=== PATIENT | male | born 1985 | race Two or more races ===

== ENCOUNTER 2021-03-11 10:42 | Inpatient (IN) | payer OTHER ==
[2021-03-11 11:12] VITALS: BMI 33.1
[2021-03-11] MEDS ORDERED: NICOTINE POLACRILEX 2 MG GUM BUC PRN (12:33)
[2021-03-11] MEDS ORDERED: ACETAMINOPHEN 325 MG TABLET (FP) PO PRN ×2 (12:33)
[2021-03-11] MEDS ORDERED: MAG HYDROX/AL HYDROX/SIMETH 30 ML UNIT-DOSE CUP PO PRN (12:33)
[2021-03-11] MEDS ORDERED: MAGNESIUM HYDROX 2400MG/30ML ORAL SUSPENSION 30 ML CUP PO PRN (12:33)
[2021-03-11] MEDS ORDERED: BISMUTH SUBSALICYLATE 262 MG/15 ML BTL PO PRN (12:33)
[2021-03-11] MEDS ORDERED: IBUPROFEN 400 MG TABLET (FP) PO PRN (12:33)
[2021-03-11] MEDS ORDERED: ONDANSETRON *ODT* 4 MG TABLET SL PRN (12:33)
[2021-03-11] MEDS ORDERED: MAGNESIUM CITRATE 300 ML BOTTLE PO PRN (12:33)
[2021-03-11] MEDS ORDERED: MENTHOL/PHENOL 1 EACH UD MM PRN (12:33)
[2021-03-11] MEDS ORDERED: ALBUTEROL SO4 HFA INHALER IH PRN (12:34)
[2021-03-11] MEDS: diazePAM 5 MG TABLET PO SCH ×3 (13:20→22:50)
[2021-03-11] MEDS: METHOCARBAMOL 500 MG TABLET PO PRN (13:21)
[2021-03-11] MEDS: hydrOXYzine PAMOATE 25 MG CAPSULE (FP) PO SCH ×3 (13:21→22:50)
[2021-03-11] MEDS: PRENATAL VITAMINS W/ FOLIC ACID TABLET (FP) PO SCH (13:22)
[2021-03-11 15:29] LABS: HEMATOCRIT 41.6 % (35.4-49); HEMOGLOBIN 13.9 GM/dL (11.7-16.9); MCH 31.8 pg (25.7-33.7); MCHC 33.3 g/dl (32.0-35.9); MEAN CELL VOLUME 95.5 fl (80-96); MEAN PLT VOLUME 8.3 fl (7.5-11.1); PLATELET COUNT 318 K/MM3 (134-434); RBC 4.36 M/mm3 (4.00-5.60); RDW 15.8 % (11.9-15.9)
[2021-03-11 15:33] LABS: BLOOD UREA NITROGEN 15.6 mg/dL (7-18); CALCIUM 9.6 mg/dL (8.5-10.1)
[2021-03-11 15:35] LABS: ALBUMIN 3.9 g/dl (3.4-5.0)
[2021-03-11 15:37] LABS: CREATININE 0.8 mg/dL (0.55-1.3)
[2021-03-11 15:38] LABS: BILIRUBIN,TOTAL 0.3 mg/dL (0.2-1)
[2021-03-11] MEDS: THIAMINE HCL 100 MG TABLET (FP) PO SCH (22:50)
[2021-03-11] MEDS: MELATONIN 5 MG TABLETS PO SCH (22:51)
[2021-03-12] MEDS: diazePAM 5 MG TABLET PO SCH ×4 (05:58→22:16)
[2021-03-12] MEDS: hydrOXYzine PAMOATE 25 MG CAPSULE (FP) PO SCH ×5 (05:59→22:16)
[2021-03-12] MEDS ORDERED: METHADONE HCL 40 MG DISPERSABLE TABLET ONE (08:46)
[2021-03-12] MEDS ORDERED: METHADONE HCL 10 MG TABLET ONE (08:46)
[2021-03-12] MEDS: PRENATAL VITAMINS W/ FOLIC ACID TABLET (FP) PO SCH (09:26)
[2021-03-12] MEDS ORDERED: METHADONE 160 MG, METHADONE 20 MG PO SCH (10:00)
[2021-03-12] MEDS ORDERED: METHADONE HCL 40 MG DISPERSABLE TABLET PO SCH (10:00)
[2021-03-12] MEDS: METHOCARBAMOL 500 MG TABLET PO PRN (19:36)
[2021-03-12] MEDS ORDERED: SUVOREXANT 10 MG TABLET PO PRN (22:00)
[2021-03-12] MEDS: THIAMINE HCL 100 MG TABLET (FP) PO SCH (22:15)
[2021-03-12] MEDS: MELATONIN 5 MG TABLETS PO SCH (22:15)
[2021-03-13] MEDS ORDERED: METHADONE HCL 40 MG DISPERSABLE TABLET ONE (04:15)
[2021-03-13] MEDS ORDERED: METHADONE HCL 10 MG TABLET ONE (04:15)
[2021-03-13] MEDS: hydrOXYzine PAMOATE 25 MG CAPSULE (FP) PO SCH ×5 (06:26→22:49)
[2021-03-13] MEDS: METHADONE 160 MG, METHADONE 20 MG PO SCH (06:26)
[2021-03-13] MEDS: diazePAM 5 MG TABLET PO SCH ×3 (06:26→22:49)
[2021-03-13] MEDS: METHOCARBAMOL 500 MG TABLET PO PRN ×2 (10:25→22:49)
[2021-03-13] MEDS: PRENATAL VITAMINS W/ FOLIC ACID TABLET (FP) PO SCH (10:25)
[2021-03-13] MEDS: diazePAM 5 MG TABLET PO PRN (10:27)
[2021-03-13] MEDS: THIAMINE HCL 100 MG TABLET (FP) PO SCH (22:49)
[2021-03-13] MEDS: MELATONIN 5 MG TABLETS PO SCH (22:52)
[2021-03-14] MEDS ORDERED: METHADONE HCL 40 MG DISPERSABLE TABLET ONE (03:22)
[2021-03-14] MEDS ORDERED: METHADONE HCL 10 MG TABLET ONE (03:22)
[2021-03-14] MEDS: diazePAM 5 MG TABLET PO SCH ×2 (06:18→17:47)
[2021-03-14] MEDS: METHADONE 160 MG, METHADONE 20 MG PO SCH (06:18)
[2021-03-14] MEDS: hydrOXYzine PAMOATE 25 MG CAPSULE (FP) PO SCH ×5 (06:19→22:41)
[2021-03-14] MEDS: METHOCARBAMOL 500 MG TABLET PO PRN ×2 (06:21→17:47)
[2021-03-14 10:08] LABS: SARS-CoV-2 NAA Not Detected (Not Detected)
[2021-03-14] MEDS: PRENATAL VITAMINS W/ FOLIC ACID TABLET (FP) PO SCH (10:23)
[2021-03-14] MEDS: diazePAM 5 MG TABLET PO PRN (10:24)
[2021-03-14] MEDS: MELATONIN 5 MG TABLETS PO SCH (22:41)
[2021-03-14] MEDS: THIAMINE HCL 100 MG TABLET (FP) PO SCH (22:41)
[2021-03-15] MEDS ORDERED: METHADONE HCL 40 MG DISPERSABLE TABLET ONE (03:49)
[2021-03-15] MEDS ORDERED: METHADONE HCL 10 MG TABLET ONE (03:49)
[2021-03-15] MEDS ORDERED: diazePAM 5 MG TABLET PO ONE (06:00)
[2021-03-15] MEDS: hydrOXYzine PAMOATE 25 MG CAPSULE (FP) PO SCH (07:02)
[2021-03-15] MEDS: METHADONE 160 MG, METHADONE 20 MG PO SCH (07:03)
[2021-03-15 07:07] VITALS: BP 123/66; PULSE 89; TEMP 96.6
== END 2021-03-15 09:12 | disposition home or self-care (01) | DRG 773 ==
LOC: YASAS 10:42 → Y6N 12:05
PROVIDERS: ADMIT Allergy & Immunology; ATTEND Allergy & Immunology
PROC: HZ2ZZZZ Detoxification Services for Substance Abuse Treatment (ICD-10-PCS; principal; 2021-03-11)
DX: F10.230 Alcohol dependence with withdrawal, uncomplicated (principal); F11.20 Opioid dependence, uncomplicated; F13.230 Sedative, hypnotic or anxiolytic dependence with withdrawal, uncomplicated; F12.20 Cannabis dependence, uncomplicated; F17.210 Nicotine dependence, cigarettes, uncomplicated; F31.9 Bipolar disorder, unspecified; F41.9 Anxiety disorder, unspecified; J45.20 Mild intermittent asthma, uncomplicated; Z56.0 Unemployment, unspecified; Z59.0 Homelessness
CPT/HCPCS: 36415; 80053; 85027; 86780; C9803; Q0162; U0003; U0005

== ENCOUNTER 2021-04-07 12:06 | Inpatient (IN) | payer OTHER ==
[2021-04-07 13:27] VITALS: BMI 33.3
[2021-04-07] MEDS ORDERED: NICOTINE POLACRILEX 2 MG GUM BUC PRN (13:31)
[2021-04-07] MEDS ORDERED: MAGNESIUM CITRATE 300 ML BOTTLE PO PRN (13:31)
[2021-04-07] MEDS ORDERED: IBUPROFEN 400 MG TABLET (FP) PO PRN (13:31)
[2021-04-07] MEDS ORDERED: MENTHOL/PHENOL 1 EACH UD MM PRN (13:31)
[2021-04-07] MEDS ORDERED: ACETAMINOPHEN 325 MG TABLET (FP) PO PRN ×2 (13:31)
[2021-04-07] MEDS ORDERED: MAG HYDROX/AL HYDROX/SIMETH 30 ML UNIT-DOSE CUP PO PRN (13:31)
[2021-04-07] MEDS ORDERED: BISMUTH SUBSALICYLATE 524 MG/30 ML PO PRN (13:31)
[2021-04-07] MEDS ORDERED: MAGNESIUM HYDROX 2400MG/30ML ORAL SUSPENSION 30 ML CUP PO PRN (13:31)
[2021-04-07] MEDS ORDERED: diazePAM 5 MG TABLET ONE (13:56)
[2021-04-07] MEDS: diazePAM 5 MG TABLET PO SCH ×3 (14:00→23:39)
[2021-04-07] MEDS: PRENATAL VITAMINS W/ FOLIC ACID TABLET (FP) PO SCH (15:21)
[2021-04-07] MEDS: ONDANSETRON *ODT* 4 MG TABLET SL PRN (15:21)
[2021-04-07] MEDS: hydrOXYzine PAMOATE 25 MG CAPSULE (FP) PO SCH ×3 (15:22→23:39)
[2021-04-07] MEDS: METHOCARBAMOL 500 MG TABLET PO PRN (15:22)
[2021-04-07 17:02] LABS: HEMATOCRIT 36.2 % (35.4-49); HEMOGLOBIN 12.2 GM/dL (11.7-16.9); MCH 32.2 pg (25.7-33.7); MCHC 33.8 g/dl (32.0-35.9); MEAN CELL VOLUME 95.4 fl (80-96); MEAN PLT VOLUME 9.6 fl (7.5-11.1); PLATELET COUNT 214 K/MM3 (134-434); RDW 15.5 % (11.9-15.9); WHITE BLOOD COUNT 8.3 K/mm3 (4.0-10.0)
[2021-04-07 17:08] LABS: ALBUMIN 3.6 g/dl (3.4-5.0); BLOOD UREA NITROGEN 8.4 mg/dL (7-18); CALCIUM 8.3 mg/dL (8.5-10.1)
[2021-04-07 17:11] LABS: CREATININE 0.6 mg/dL (0.55-1.3)
[2021-04-07 17:12] LABS: BILIRUBIN,TOTAL 0.2 mg/dL (0.2-1); TOT PROT 7.1 g/dl (6.4-8.2)
[2021-04-07] MEDS: MELATONIN 5 MG TABLETS PO SCH (23:39)
[2021-04-07] MEDS: THIAMINE HCL 100 MG TABLET (FP) PO SCH (23:39)
[2021-04-08] MEDS: hydrOXYzine PAMOATE 25 MG CAPSULE (FP) PO SCH ×5 (05:13→22:26)
[2021-04-08] MEDS: diazePAM 5 MG TABLET PO SCH ×4 (05:14→22:26)
[2021-04-08] MEDS: METHOCARBAMOL 500 MG TABLET PO PRN ×2 (05:14→13:26)
[2021-04-08] MEDS ORDERED: ALBUTEROL SO4 HFA INHALER IH PRN (07:52)
[2021-04-08] MEDS ORDERED: METHADONE HCL 10 MG TABLET PO ONE (08:06)
[2021-04-08] MEDS ORDERED: METHADONE 160 MG, METHADONE 20 MG PO ONE (08:17)
[2021-04-08] MEDS ORDERED: METHADONE HCL 10 MG TABLET ONE (09:00)
[2021-04-08] MEDS ORDERED: METHADONE HCL 40 MG DISPERSABLE TABLET ONE (09:01)
[2021-04-08] MEDS: ONDANSETRON *ODT* 4 MG TABLET SL PRN ×2 (09:08→17:29)
[2021-04-08] MEDS: NICOTINE 14 MG/24 HOURS TOPICAL PATCH TD SCH (10:11)
[2021-04-08] MEDS: PRENATAL VITAMINS W/ FOLIC ACID TABLET (FP) PO SCH (10:12)
[2021-04-08 10:45] LABS: HIV INTERPRETATION NEGATIVE (NEGATIVE)
[2021-04-08] MEDS: MELATONIN 5 MG TABLETS PO SCH (22:25)
[2021-04-08] MEDS: THIAMINE HCL 100 MG TABLET (FP) PO SCH (22:25)
[2021-04-09] MEDS ORDERED: METHADONE HCL 40 MG DISPERSABLE TABLET ONE (04:13)
[2021-04-09] MEDS ORDERED: METHADONE HCL 10 MG TABLET ONE (04:13)
[2021-04-09] MEDS: METHADONE 160 MG, METHADONE 20 MG PO SCH (05:31)
[2021-04-09] MEDS: diazePAM 5 MG TABLET PO SCH ×3 (05:31→22:10)
[2021-04-09] MEDS: hydrOXYzine PAMOATE 25 MG CAPSULE (FP) PO SCH ×2 (05:31→10:31)
[2021-04-09] MEDS ORDERED: METHADONE HCL 40 MG DISPERSABLE TABLET PO SCH (06:00)
[2021-04-09] MEDS ORDERED: TRIMETHOBENZAMIDE HCL 300 MG CAPSULE PO PRN (10:03)
[2021-04-09] MEDS: hydrOXYzine PAMOATE 25 MG CAPSULE (FP) PO PRN ×3 (10:25→22:12)
[2021-04-09] MEDS: METHOCARBAMOL 500 MG TABLET PO PRN ×2 (10:25→17:39)
[2021-04-09] MEDS: diazePAM 5 MG TABLET PO PRN ×2 (10:26→17:37)
[2021-04-09] MEDS: PRENATAL VITAMINS W/ FOLIC ACID TABLET (FP) PO SCH (10:27)
[2021-04-09] MEDS: NICOTINE 14 MG/24 HOURS TOPICAL PATCH TD SCH (10:27)
[2021-04-09] MEDS: CYPROHEPTADINE HCL 4 MG TABLET PO SCH ×2 (11:57→17:39)
[2021-04-09] MEDS: THIAMINE HCL 100 MG TABLET (FP) PO SCH (22:10)
[2021-04-09] MEDS: MELATONIN 5 MG TABLETS PO SCH (22:10)
[2021-04-10] MEDS ORDERED: METHADONE HCL 10 MG TABLET ONE (04:39)
[2021-04-10] MEDS ORDERED: METHADONE HCL 40 MG DISPERSABLE TABLET ONE (04:40)
[2021-04-10] MEDS: diazePAM 5 MG TABLET PO SCH ×2 (05:47→17:37)
[2021-04-10] MEDS: METHADONE 160 MG, METHADONE 20 MG PO SCH (05:47)
[2021-04-10] MEDS: METHOCARBAMOL 500 MG TABLET PO PRN (05:49)
[2021-04-10 06:07] LABS: SARS-CoV-2 NAA Not Detected (Not Detected)
[2021-04-10] MEDS: CYPROHEPTADINE HCL 4 MG TABLET PO SCH ×3 (08:05→17:37)
[2021-04-10] MEDS: PRENATAL VITAMINS W/ FOLIC ACID TABLET (FP) PO SCH (10:17)
[2021-04-10] MEDS: NICOTINE 14 MG/24 HOURS TOPICAL PATCH TD SCH (10:18)
[2021-04-10] MEDS: hydrOXYzine PAMOATE 25 MG CAPSULE (FP) PO PRN ×2 (10:19→22:37)
[2021-04-10] MEDS: MELATONIN 5 MG TABLETS PO SCH (22:37)
[2021-04-10] MEDS: THIAMINE HCL 100 MG TABLET (FP) PO SCH (22:37)
[2021-04-11] MEDS ORDERED: METHADONE HCL 40 MG DISPERSABLE TABLET ONE (04:40)
[2021-04-11] MEDS ORDERED: METHADONE HCL 10 MG TABLET ONE (04:40)
[2021-04-11] MEDS: METHADONE 160 MG, METHADONE 20 MG PO SCH (05:52)
[2021-04-11] MEDS: METHOCARBAMOL 500 MG TABLET PO PRN (05:54)
[2021-04-11] MEDS ORDERED: diazePAM 5 MG TABLET PO ONE (06:00)
[2021-04-11] MEDS: CYPROHEPTADINE HCL 4 MG TABLET PO SCH ×2 (06:04→10:48)
[2021-04-11 09:23] VITALS: BP 111/84; PULSE 81; TEMP 97.1
[2021-04-11] MEDS: NICOTINE 14 MG/24 HOURS TOPICAL PATCH TD SCH (10:49)
[2021-04-11] MEDS: PRENATAL VITAMINS W/ FOLIC ACID TABLET (FP) PO SCH (10:49)
[2021-04-11] MEDS: hydrOXYzine PAMOATE 25 MG CAPSULE (FP) PO PRN (10:50)
== END 2021-04-11 12:11 | disposition other institution (70) | DRG 773 ==
LOC: YASAS 12:06 → Y3N 14:07
PROVIDERS: ADMIT Allergy & Immunology; ATTEND Allergy & Immunology
PROC: HZ2ZZZZ Detoxification Services for Substance Abuse Treatment (ICD-10-PCS; principal; 2021-04-07)
DX: F13.230 Sedative, hypnotic or anxiolytic dependence with withdrawal, uncomplicated (principal); F11.20 Opioid dependence, uncomplicated; F10.10 Alcohol abuse, uncomplicated; F12.20 Cannabis dependence, uncomplicated; F17.210 Nicotine dependence, cigarettes, uncomplicated; F31.9 Bipolar disorder, unspecified; F41.9 Anxiety disorder, unspecified; J45.20 Mild intermittent asthma, uncomplicated; E66.9 Obesity, unspecified; Z68.33 Body mass index [BMI] 33.0-33.9, adult
CPT/HCPCS: 36415; 80053; 85027; 86780; 87389; C9803; Q0162; U0003; U0005

== ENCOUNTER 2021-04-11 11:53 | Inpatient (IN) | payer OTHER ==
[2021-04-11] MEDS ORDERED: guaiFENesin 200 MG/10 ML 10 ML UNIT-DOSE CUPS PO PRN (13:38)
[2021-04-11] MEDS ORDERED: IBUPROFEN 400 MG TABLET (FP) PO PRN (13:38)
[2021-04-11] MEDS ORDERED: MAG HYDROX/AL HYDROX/SIMETH 30 ML UNIT-DOSE CUP PO PRN (13:38)
[2021-04-11] MEDS ORDERED: NICOTINE POLACRILEX 2 MG GUM BUC PRN (13:38)
[2021-04-11] MEDS ORDERED: MENTHOL/PHENOL 1 EACH UD MM PRN (13:38)
[2021-04-11] MEDS ORDERED: P-EPHED 60MG/TRIPROLIDI 2.5MG TABLET PO PRN (13:38)
[2021-04-11] MEDS ORDERED: LOPERAMIDE HCL 2 MG CAPSULE PO PRN (13:38)
[2021-04-11] MEDS ORDERED: ALBUTEROL SO4 HFA INHALER IH PRN (13:41)
[2021-04-11] MEDS: CYPROHEPTADINE HCL 4 MG TABLET PO SCH (18:17)
[2021-04-11] MEDS: THIAMINE HCL 100 MG TABLET (FP) PO SCH (21:37)
[2021-04-11] MEDS: QUEtiapine FUMARATE 50 MG TABLET PO SCH (21:37)
[2021-04-11] MEDS: MELATONIN 5 MG TABLETS PO SCH (21:37)
[2021-04-11] MEDS: BENZTROPINE MESYLATE 1 MG TABLET PO SCH (21:37)
[2021-04-12] MEDS ORDERED: METHADONE HCL 40 MG DISPERSABLE TABLET ONE (05:55)
[2021-04-12] MEDS ORDERED: METHADONE HCL 10 MG TABLET ONE (05:55)
[2021-04-12] MEDS ORDERED: METHADONE HCL 10 MG TABLET PO SCH (06:00)
[2021-04-12] MEDS: METHADONE 160 MG, METHADONE 20 MG PO SCH (06:36)
[2021-04-12] MEDS: CYPROHEPTADINE HCL 4 MG TABLET PO SCH ×3 (06:37→17:24)
[2021-04-12] MEDS: ACETAMINOPHEN 325 MG TABLET (FP) PO PRN (06:38)
[2021-04-12] MEDS: NICOTINE 14 MG/24 HOURS TOPICAL PATCH TD SCH (09:54)
[2021-04-12] MEDS: BENZTROPINE MESYLATE 1 MG TABLET PO SCH ×2 (09:54→21:32)
[2021-04-12] MEDS: PRENATAL VITAMINS W/ FOLIC ACID TABLET (FP) PO SCH (09:54)
[2021-04-12] MEDS: hydrOXYzine PAMOATE 25 MG CAPSULE (FP) PO PRN (09:55)
[2021-04-12] MEDS: METHOCARBAMOL 500 MG TABLET PO PRN ×2 (13:24→21:32)
[2021-04-12] MEDS: MELATONIN 5 MG TABLETS PO SCH (21:31)
[2021-04-12] MEDS: THIAMINE HCL 100 MG TABLET (FP) PO SCH (21:31)
[2021-04-12] MEDS: QUEtiapine FUMARATE 50 MG TABLET PO SCH (21:32)
[2021-04-13] MEDS ORDERED: METHADONE HCL 10 MG TABLET ONE (03:09)
[2021-04-13] MEDS ORDERED: METHADONE HCL 40 MG DISPERSABLE TABLET ONE (03:09)
[2021-04-13] MEDS: CYPROHEPTADINE HCL 4 MG TABLET PO SCH ×3 (06:19→17:59)
[2021-04-13] MEDS: METHADONE 160 MG, METHADONE 20 MG PO SCH (06:19)
[2021-04-13] MEDS: PRENATAL VITAMINS W/ FOLIC ACID TABLET (FP) PO SCH (09:47)
[2021-04-13] MEDS: NICOTINE 14 MG/24 HOURS TOPICAL PATCH TD SCH (09:49)
[2021-04-13] MEDS: METHOCARBAMOL 500 MG TABLET PO PRN ×2 (09:49→21:38)
[2021-04-13] MEDS: BENZTROPINE MESYLATE 1 MG TABLET PO SCH ×2 (09:50→21:39)
[2021-04-13] MEDS ORDERED: ESCITALOPRAM OXALATE 10 MG TABLET PO SCH (10:00)
[2021-04-13] MEDS: QUEtiapine FUMARATE 50 MG TABLET PO SCH ×2 (12:26→21:38)
[2021-04-13] MEDS: MELATONIN 5 MG TABLETS PO SCH (21:38)
[2021-04-13] MEDS: THIAMINE HCL 100 MG TABLET (FP) PO SCH (21:38)
[2021-04-14] MEDS ORDERED: METHADONE HCL 10 MG TABLET ONE (03:08)
[2021-04-14] MEDS ORDERED: METHADONE HCL 40 MG DISPERSABLE TABLET ONE (03:08)
[2021-04-14] MEDS: CYPROHEPTADINE HCL 4 MG TABLET PO SCH ×3 (06:31→16:44)
[2021-04-14] MEDS: METHADONE 160 MG, METHADONE 20 MG PO SCH (06:31)
[2021-04-14] MEDS: METHOCARBAMOL 500 MG TABLET PO PRN ×4 (06:32→21:19)
[2021-04-14] MEDS ORDERED: PT OWN MED DRAWER 7, Y5N ONE (08:42)
[2021-04-14] MEDS: BENZTROPINE MESYLATE 1 MG TABLET PO SCH ×2 (10:18→21:18)
[2021-04-14] MEDS: NICOTINE 14 MG/24 HOURS TOPICAL PATCH TD SCH (10:19)
[2021-04-14] MEDS: PRENATAL VITAMINS W/ FOLIC ACID TABLET (FP) PO SCH (10:19)
[2021-04-14] MEDS: FLUoxetine HCL 10 MG TABLET PO SCH (10:20)
[2021-04-14] MEDS: ACETAMINOPHEN 325 MG TABLET (FP) PO PRN (16:44)
[2021-04-14] MEDS: QUEtiapine FUMARATE 50 MG TABLET PO SCH (21:18)
[2021-04-14] MEDS: MELATONIN 5 MG TABLETS PO SCH (21:18)
[2021-04-14] MEDS: THIAMINE HCL 100 MG TABLET (FP) PO SCH (21:18)
[2021-04-15] MEDS ORDERED: METHADONE HCL 40 MG DISPERSABLE TABLET ONE (03:04)
[2021-04-15] MEDS ORDERED: METHADONE HCL 10 MG TABLET ONE (03:04)
[2021-04-15 06:08] LABS: SARS-CoV-2 NAA Not Detected (Not Detected)
[2021-04-15] MEDS: METHADONE 160 MG, METHADONE 20 MG PO SCH (06:34)
[2021-04-15] MEDS: CYPROHEPTADINE HCL 4 MG TABLET PO SCH ×3 (06:34→16:50)
[2021-04-15] MEDS: METHOCARBAMOL 500 MG TABLET PO PRN ×3 (06:58→21:19)
[2021-04-15] MEDS: MAGNESIUM HYDROX 2400MG/30ML ORAL SUSPENSION 30 ML CUP PO PRN (08:54)
[2021-04-15] MEDS: PRENATAL VITAMINS W/ FOLIC ACID TABLET (FP) PO SCH (10:07)
[2021-04-15] MEDS: FLUoxetine HCL 10 MG TABLET PO SCH (10:08)
[2021-04-15] MEDS: BENZTROPINE MESYLATE 1 MG TABLET PO SCH ×2 (10:08→21:19)
[2021-04-15] MEDS: NICOTINE 14 MG/24 HOURS TOPICAL PATCH TD SCH (10:08)
[2021-04-15] MEDS: QUEtiapine FUMARATE 50 MG TABLET PO SCH (21:19)
[2021-04-15] MEDS: THIAMINE HCL 100 MG TABLET (FP) PO SCH (21:19)
[2021-04-15] MEDS: MELATONIN 5 MG TABLETS PO SCH (21:19)
[2021-04-16] MEDS ORDERED: METHADONE HCL 10 MG TABLET ONE (03:06)
[2021-04-16] MEDS ORDERED: METHADONE HCL 40 MG DISPERSABLE TABLET ONE (03:06)
[2021-04-16] MEDS: CYPROHEPTADINE HCL 4 MG TABLET PO SCH ×3 (06:00→16:38)
[2021-04-16] MEDS: METHADONE 160 MG, METHADONE 20 MG PO SCH (06:00)
[2021-04-16] MEDS: METHOCARBAMOL 500 MG TABLET PO PRN ×3 (06:00→21:30)
[2021-04-16] MEDS: FLUoxetine HCL 10 MG TABLET PO SCH (09:06)
[2021-04-16] MEDS: PRENATAL VITAMINS W/ FOLIC ACID TABLET (FP) PO SCH (09:06)
[2021-04-16] MEDS: BENZTROPINE MESYLATE 1 MG TABLET PO SCH ×2 (09:06→21:28)
[2021-04-16] MEDS: NICOTINE 14 MG/24 HOURS TOPICAL PATCH TD SCH (09:07)
[2021-04-16] MEDS: MAGNESIUM CITRATE 300 ML BOTTLE PO PRN (09:08)
[2021-04-16] MEDS: ACETAMINOPHEN 325 MG TABLET (FP) PO PRN (09:08)
[2021-04-16] MEDS: QUEtiapine FUMARATE 50 MG TABLET PO SCH (21:28)
[2021-04-16] MEDS: MELATONIN 5 MG TABLETS PO SCH (21:29)
[2021-04-16] MEDS: THIAMINE HCL 100 MG TABLET (FP) PO SCH (21:30)
[2021-04-17] MEDS ORDERED: METHADONE HCL 40 MG DISPERSABLE TABLET ONE (03:18)
[2021-04-17] MEDS ORDERED: METHADONE HCL 10 MG TABLET ONE (03:18)
[2021-04-17] MEDS: CYPROHEPTADINE HCL 4 MG TABLET PO SCH ×3 (06:31→17:19)
[2021-04-17] MEDS: METHADONE 160 MG, METHADONE 20 MG PO SCH (06:31)
[2021-04-17] MEDS: FLUoxetine HCL 10 MG TABLET PO SCH (10:24)
[2021-04-17] MEDS: NICOTINE 14 MG/24 HOURS TOPICAL PATCH TD SCH (10:24)
[2021-04-17] MEDS: BENZTROPINE MESYLATE 1 MG TABLET PO SCH ×2 (10:24→21:58)
[2021-04-17] MEDS: PRENATAL VITAMINS W/ FOLIC ACID TABLET (FP) PO SCH (10:24)
[2021-04-17] MEDS: METHOCARBAMOL 500 MG TABLET PO PRN ×2 (17:22→21:59)
[2021-04-17] MEDS: QUEtiapine FUMARATE 50 MG TABLET PO SCH (21:57)
[2021-04-17] MEDS: MELATONIN 5 MG TABLETS PO SCH (21:58)
[2021-04-17] MEDS: THIAMINE HCL 100 MG TABLET (FP) PO SCH (21:59)
[2021-04-18] MEDS ORDERED: METHADONE HCL 10 MG TABLET ONE (05:49)
[2021-04-18] MEDS ORDERED: METHADONE HCL 40 MG DISPERSABLE TABLET ONE (05:49)
[2021-04-18] MEDS: METHADONE 160 MG, METHADONE 20 MG PO SCH (06:10)
[2021-04-18] MEDS: CYPROHEPTADINE HCL 4 MG TABLET PO SCH ×3 (06:11→16:34)
[2021-04-18] MEDS: ACETAMINOPHEN 325 MG TABLET (FP) PO PRN (06:11)
[2021-04-18] MEDS: PRENATAL VITAMINS W/ FOLIC ACID TABLET (FP) PO SCH (10:33)
[2021-04-18] MEDS: ARIPiprazole 5 MG TABLET PO SCH (10:33)
[2021-04-18] MEDS: METHOCARBAMOL 500 MG TABLET PO PRN ×2 (10:33→16:34)
[2021-04-18] MEDS: BENZTROPINE MESYLATE 1 MG TABLET PO SCH ×2 (10:33→21:29)
[2021-04-18] MEDS: NICOTINE 14 MG/24 HOURS TOPICAL PATCH TD SCH (10:33)
[2021-04-18] MEDS: THIAMINE HCL 100 MG TABLET (FP) PO SCH (21:29)
[2021-04-18] MEDS: QUEtiapine FUMARATE 50 MG TABLET PO SCH (21:29)
[2021-04-18] MEDS: MELATONIN 5 MG TABLETS PO SCH (21:29)
[2021-04-19] MEDS ORDERED: METHADONE HCL 40 MG DISPERSABLE TABLET ONE (04:09)
[2021-04-19] MEDS ORDERED: METHADONE HCL 10 MG TABLET ONE (04:10)
[2021-04-19] MEDS: CYPROHEPTADINE HCL 4 MG TABLET PO SCH ×3 (06:00→16:20)
[2021-04-19] MEDS: METHADONE 160 MG, METHADONE 20 MG PO SCH (06:00)
[2021-04-19] MEDS: METHOCARBAMOL 500 MG TABLET PO PRN ×3 (06:03→21:25)
[2021-04-19] MEDS: NICOTINE 14 MG/24 HOURS TOPICAL PATCH TD SCH (09:54)
[2021-04-19] MEDS: ARIPiprazole 5 MG TABLET PO SCH (09:54)
[2021-04-19] MEDS: BENZTROPINE MESYLATE 1 MG TABLET PO SCH ×2 (09:54→21:25)
[2021-04-19] MEDS: PRENATAL VITAMINS W/ FOLIC ACID TABLET (FP) PO SCH (09:54)
[2021-04-19] MEDS: hydrOXYzine PAMOATE 25 MG CAPSULE (FP) PO PRN (09:57)
[2021-04-19] MEDS: THIAMINE HCL 100 MG TABLET (FP) PO SCH (21:24)
[2021-04-19] MEDS: QUEtiapine FUMARATE 50 MG TABLET PO SCH (21:25)
[2021-04-19] MEDS: MELATONIN 5 MG TABLETS PO SCH (21:25)
[2021-04-20] MEDS ORDERED: METHADONE HCL 40 MG DISPERSABLE TABLET ONE (03:13)
[2021-04-20] MEDS ORDERED: METHADONE HCL 10 MG TABLET ONE (03:14)
[2021-04-20] MEDS: METHADONE 160 MG, METHADONE 20 MG PO SCH (05:57)
[2021-04-20] MEDS: ACETAMINOPHEN 325 MG TABLET (FP) PO PRN (05:58)
[2021-04-20] MEDS: CYPROHEPTADINE HCL 4 MG TABLET PO SCH ×3 (06:00→16:30)
[2021-04-20] MEDS: BENZTROPINE MESYLATE 1 MG TABLET PO SCH ×2 (09:18→21:20)
[2021-04-20] MEDS: NICOTINE 14 MG/24 HOURS TOPICAL PATCH TD SCH (09:18)
[2021-04-20] MEDS: PRENATAL VITAMINS W/ FOLIC ACID TABLET (FP) PO SCH (09:18)
[2021-04-20] MEDS: ARIPiprazole 5 MG TABLET PO SCH (09:18)
[2021-04-20] MEDS: hydrOXYzine PAMOATE 25 MG CAPSULE (FP) PO PRN ×2 (09:19→17:55)
[2021-04-20] MEDS: THIAMINE HCL 100 MG TABLET (FP) PO SCH (21:20)
[2021-04-20] MEDS: QUEtiapine FUMARATE 50 MG TABLET PO SCH (21:20)
[2021-04-20] MEDS: MELATONIN 5 MG TABLETS PO SCH (21:20)
[2021-04-20] MEDS: METHOCARBAMOL 500 MG TABLET PO PRN (21:20)
[2021-04-21] MEDS ORDERED: METHADONE HCL 40 MG DISPERSABLE TABLET ONE (03:05)
[2021-04-21] MEDS ORDERED: METHADONE HCL 10 MG TABLET ONE (03:05)
[2021-04-21] MEDS: METHADONE 160 MG, METHADONE 20 MG PO SCH (06:22)
[2021-04-21] MEDS: CYPROHEPTADINE HCL 4 MG TABLET PO SCH ×3 (06:23→17:17)
[2021-04-21] MEDS: hydrOXYzine PAMOATE 25 MG CAPSULE (FP) PO PRN ×3 (06:26→21:24)
[2021-04-21] MEDS: METHOCARBAMOL 500 MG TABLET PO PRN ×3 (06:26→14:47)
[2021-04-21] MEDS: ARIPiprazole 5 MG TABLET PO SCH (09:58)
[2021-04-21] MEDS: NICOTINE 14 MG/24 HOURS TOPICAL PATCH TD SCH (09:59)
[2021-04-21] MEDS: BENZTROPINE MESYLATE 1 MG TABLET PO SCH ×2 (09:59→21:22)
[2021-04-21] MEDS: PRENATAL VITAMINS W/ FOLIC ACID TABLET (FP) PO SCH (09:59)
[2021-04-21] MEDS: MELATONIN 5 MG TABLETS PO SCH (21:23)
[2021-04-21] MEDS: QUEtiapine FUMARATE 50 MG TABLET PO SCH (21:23)
[2021-04-21] MEDS: THIAMINE HCL 100 MG TABLET (FP) PO SCH (21:24)
[2021-04-22] MEDS ORDERED: METHADONE HCL 40 MG DISPERSABLE TABLET ONE (03:10)
[2021-04-22] MEDS ORDERED: METHADONE HCL 10 MG TABLET ONE (03:11)
[2021-04-22] MEDS: METHADONE 160 MG, METHADONE 20 MG PO SCH (05:59)
[2021-04-22] MEDS: CYPROHEPTADINE HCL 4 MG TABLET PO SCH ×3 (05:59→16:58)
[2021-04-22] MEDS: ACETAMINOPHEN 325 MG TABLET (FP) PO PRN (06:00)
[2021-04-22] MEDS: PRENATAL VITAMINS W/ FOLIC ACID TABLET (FP) PO SCH (10:19)
[2021-04-22] MEDS: NICOTINE 14 MG/24 HOURS TOPICAL PATCH TD SCH (10:20)
[2021-04-22] MEDS: BENZTROPINE MESYLATE 1 MG TABLET PO SCH ×2 (10:20→21:16)
[2021-04-22] MEDS: ARIPiprazole 5 MG TABLET PO SCH (10:20)
[2021-04-22] MEDS: METHOCARBAMOL 500 MG TABLET PO PRN ×3 (10:21→21:19)
[2021-04-22] MEDS ORDERED: ARIPiprazole 5 MG TABLET PO SCH (14:44)
[2021-04-22] MEDS: QUEtiapine FUMARATE 50 MG TABLET PO SCH (21:16)
[2021-04-22] MEDS: THIAMINE HCL 100 MG TABLET (FP) PO SCH (21:17)
[2021-04-22] MEDS: MELATONIN 5 MG TABLETS PO SCH (21:19)
[2021-04-23] MEDS ORDERED: METHADONE HCL 40 MG DISPERSABLE TABLET ONE (03:52)
[2021-04-23] MEDS ORDERED: METHADONE HCL 10 MG TABLET ONE (03:52)
[2021-04-23] MEDS: CYPROHEPTADINE HCL 4 MG TABLET PO SCH ×3 (06:13→17:10)
[2021-04-23] MEDS: METHADONE 160 MG, METHADONE 20 MG PO SCH (06:13)
[2021-04-23] MEDS: ARIPiprazole 10 MG TABLET PO SCH (09:53)
[2021-04-23] MEDS: PRENATAL VITAMINS W/ FOLIC ACID TABLET (FP) PO SCH (09:54)
[2021-04-23] MEDS: NICOTINE 14 MG/24 HOURS TOPICAL PATCH TD SCH (09:54)
[2021-04-23] MEDS: BENZTROPINE MESYLATE 1 MG TABLET PO SCH ×2 (09:54→21:28)
[2021-04-23] MEDS: METHOCARBAMOL 500 MG TABLET PO PRN ×2 (17:10→21:28)
[2021-04-23] MEDS: MELATONIN 5 MG TABLETS PO SCH (21:27)
[2021-04-23] MEDS: THIAMINE HCL 100 MG TABLET (FP) PO SCH (21:27)
[2021-04-23] MEDS: QUEtiapine FUMARATE 50 MG TABLET PO SCH (21:28)
[2021-04-24] MEDS ORDERED: METHADONE HCL 40 MG DISPERSABLE TABLET ONE (06:15)
[2021-04-24] MEDS ORDERED: METHADONE HCL 10 MG TABLET ONE (06:15)
[2021-04-24] MEDS: CYPROHEPTADINE HCL 4 MG TABLET PO SCH ×3 (06:24→16:28)
[2021-04-24] MEDS: METHADONE 160 MG, METHADONE 20 MG PO SCH (06:24)
[2021-04-24] MEDS: METHOCARBAMOL 500 MG TABLET PO PRN ×3 (06:26→21:31)
[2021-04-24] MEDS: BENZTROPINE MESYLATE 1 MG TABLET PO SCH ×2 (10:08→21:30)
[2021-04-24] MEDS: PRENATAL VITAMINS W/ FOLIC ACID TABLET (FP) PO SCH (10:08)
[2021-04-24] MEDS: NICOTINE 14 MG/24 HOURS TOPICAL PATCH TD SCH (10:08)
[2021-04-24] MEDS: ARIPiprazole 10 MG TABLET PO SCH (10:08)
[2021-04-24] MEDS: hydrOXYzine PAMOATE 25 MG CAPSULE (FP) PO PRN ×3 (10:09→21:29)
[2021-04-24] MEDS: MAGNESIUM HYDROX 2400MG/30ML ORAL SUSPENSION 30 ML CUP PO PRN (11:02)
[2021-04-24] MEDS ORDERED: MASKS NR ONE (15:27)
[2021-04-24] MEDS: QUEtiapine FUMARATE 50 MG TABLET PO SCH (21:29)
[2021-04-24] MEDS: THIAMINE HCL 100 MG TABLET (FP) PO SCH (21:31)
[2021-04-24] MEDS: MELATONIN 5 MG TABLETS PO SCH (21:31)
[2021-04-25] MEDS ORDERED: METHADONE HCL 40 MG DISPERSABLE TABLET ONE (03:10)
[2021-04-25] MEDS ORDERED: METHADONE HCL 10 MG TABLET ONE (03:11)
[2021-04-25] MEDS: METHADONE 160 MG, METHADONE 20 MG PO SCH (06:17)
[2021-04-25] MEDS: CYPROHEPTADINE HCL 4 MG TABLET PO SCH ×3 (06:19→16:43)
[2021-04-25] MEDS: MAGNESIUM CITRATE 300 ML BOTTLE PO PRN (08:36)
[2021-04-25] MEDS: METHOCARBAMOL 500 MG TABLET PO PRN ×2 (09:56→21:19)
[2021-04-25] MEDS: PRENATAL VITAMINS W/ FOLIC ACID TABLET (FP) PO SCH (09:56)
[2021-04-25] MEDS: ARIPiprazole 10 MG TABLET PO SCH (09:56)
[2021-04-25] MEDS: BENZTROPINE MESYLATE 1 MG TABLET PO SCH ×2 (09:56→21:19)
[2021-04-25] MEDS: NICOTINE 14 MG/24 HOURS TOPICAL PATCH TD SCH (09:57)
[2021-04-25] MEDS: MELATONIN 5 MG TABLETS PO SCH (21:20)
[2021-04-25] MEDS: QUEtiapine FUMARATE 50 MG TABLET PO SCH (21:20)
[2021-04-25] MEDS: THIAMINE HCL 100 MG TABLET (FP) PO SCH (21:20)
[2021-04-26] MEDS ORDERED: METHADONE HCL 10 MG TABLET ONE (03:23)
[2021-04-26] MEDS ORDERED: METHADONE HCL 40 MG DISPERSABLE TABLET ONE (03:23)
[2021-04-26] MEDS: CYPROHEPTADINE HCL 4 MG TABLET PO SCH ×3 (06:09→17:18)
[2021-04-26] MEDS: METHOCARBAMOL 500 MG TABLET PO PRN (06:09)
[2021-04-26] MEDS: METHADONE 160 MG, METHADONE 20 MG PO SCH (06:09)
[2021-04-26] MEDS: BENZTROPINE MESYLATE 1 MG TABLET PO SCH ×2 (10:14→21:40)
[2021-04-26] MEDS: NICOTINE 14 MG/24 HOURS TOPICAL PATCH TD SCH (10:14)
[2021-04-26] MEDS: ARIPiprazole 10 MG TABLET PO SCH (10:14)
[2021-04-26] MEDS: PRENATAL VITAMINS W/ FOLIC ACID TABLET (FP) PO SCH (10:15)
[2021-04-26] MEDS: QUEtiapine FUMARATE 50 MG TABLET PO SCH (21:39)
[2021-04-26] MEDS: THIAMINE HCL 100 MG TABLET (FP) PO SCH (21:40)
[2021-04-26] MEDS: hydrOXYzine PAMOATE 25 MG CAPSULE (FP) PO PRN (21:40)
[2021-04-26] MEDS: MELATONIN 5 MG TABLETS PO SCH (21:40)
[2021-04-27] MEDS ORDERED: METHADONE HCL 40 MG DISPERSABLE TABLET ONE (04:05)
[2021-04-27] MEDS ORDERED: METHADONE HCL 10 MG TABLET ONE (04:05)
[2021-04-27] MEDS: METHADONE 160 MG, METHADONE 20 MG PO SCH (06:03)
[2021-04-27] MEDS: METHOCARBAMOL 500 MG TABLET PO PRN (06:04)
[2021-04-27] MEDS: CYPROHEPTADINE HCL 4 MG TABLET PO SCH ×3 (06:04→17:01)
[2021-04-27] MEDS: PRENATAL VITAMINS W/ FOLIC ACID TABLET (FP) PO SCH (09:40)
[2021-04-27] MEDS: NICOTINE 14 MG/24 HOURS TOPICAL PATCH TD SCH (09:40)
[2021-04-27] MEDS: ARIPiprazole 10 MG TABLET PO SCH (09:40)
[2021-04-27] MEDS: BENZTROPINE MESYLATE 1 MG TABLET PO SCH ×2 (09:40→21:17)
[2021-04-27] MEDS: MELATONIN 5 MG TABLETS PO SCH (21:17)
[2021-04-27] MEDS: QUEtiapine FUMARATE 50 MG TABLET PO SCH (21:17)
[2021-04-27] MEDS: THIAMINE HCL 100 MG TABLET (FP) PO SCH (21:17)
[2021-04-28] MEDS ORDERED: METHADONE HCL 40 MG DISPERSABLE TABLET ONE (03:03)
[2021-04-28] MEDS ORDERED: METHADONE HCL 10 MG TABLET ONE (03:04)
[2021-04-28] MEDS: METHADONE 160 MG, METHADONE 20 MG PO SCH (05:59)
[2021-04-28] MEDS: METHOCARBAMOL 500 MG TABLET PO PRN ×2 (05:59→15:06)
[2021-04-28] MEDS: CYPROHEPTADINE HCL 4 MG TABLET PO SCH ×3 (05:59→17:24)
[2021-04-28] MEDS: NICOTINE 14 MG/24 HOURS TOPICAL PATCH TD SCH (09:32)
[2021-04-28] MEDS: BENZTROPINE MESYLATE 1 MG TABLET PO SCH ×2 (09:32→21:06)
[2021-04-28] MEDS: ARIPiprazole 10 MG TABLET PO SCH (09:32)
[2021-04-28] MEDS: PRENATAL VITAMINS W/ FOLIC ACID TABLET (FP) PO SCH (09:32)
[2021-04-28] MEDS: ACETAMINOPHEN 325 MG TABLET (FP) PO PRN ×2 (10:47→15:06)
[2021-04-28] MEDS: QUEtiapine FUMARATE 50 MG TABLET PO SCH (21:06)
[2021-04-28] MEDS: MELATONIN 5 MG TABLETS PO SCH (21:06)
[2021-04-28] MEDS: THIAMINE HCL 100 MG TABLET (FP) PO SCH (21:07)
[2021-04-29] MEDS ORDERED: METHADONE HCL 40 MG DISPERSABLE TABLET ONE (03:14)
[2021-04-29] MEDS ORDERED: METHADONE HCL 10 MG TABLET ONE (03:14)
[2021-04-29] MEDS: METHADONE 160 MG, METHADONE 20 MG PO SCH (05:54)
[2021-04-29] MEDS: METHOCARBAMOL 500 MG TABLET PO PRN ×2 (05:54→10:15)
[2021-04-29] MEDS: MAGNESIUM HYDROX 2400MG/30ML ORAL SUSPENSION 30 ML CUP PO PRN (06:45)
[2021-04-29] MEDS: CYPROHEPTADINE HCL 4 MG TABLET PO SCH ×3 (06:54→16:25)
[2021-04-29] MEDS: hydrOXYzine PAMOATE 25 MG CAPSULE (FP) PO PRN (10:14)
[2021-04-29] MEDS: PRENATAL VITAMINS W/ FOLIC ACID TABLET (FP) PO SCH (10:14)
[2021-04-29] MEDS: BENZTROPINE MESYLATE 1 MG TABLET PO SCH ×2 (10:14→21:15)
[2021-04-29] MEDS: ARIPiprazole 10 MG TABLET PO SCH (10:14)
[2021-04-29] MEDS: NICOTINE 14 MG/24 HOURS TOPICAL PATCH TD SCH (10:24)
[2021-04-29] MEDS: DOCUSATE SODIUM 100 MG CAPSULE (FP) PO SCH ×2 (14:50→21:15)
[2021-04-29] MEDS: ACETAMINOPHEN 325 MG TABLET (FP) PO PRN (14:54)
[2021-04-29] MEDS: THIAMINE HCL 100 MG TABLET (FP) PO SCH (21:15)
[2021-04-29] MEDS: QUEtiapine FUMARATE 50 MG TABLET PO SCH (21:15)
[2021-04-29] MEDS: MELATONIN 5 MG TABLETS PO SCH (21:15)
[2021-04-30] MEDS ORDERED: METHADONE HCL 40 MG DISPERSABLE TABLET ONE (04:04)
[2021-04-30] MEDS ORDERED: METHADONE HCL 10 MG TABLET ONE (04:04)
[2021-04-30] MEDS: METHOCARBAMOL 500 MG TABLET PO PRN ×3 (06:09→14:13)
[2021-04-30] MEDS: DOCUSATE SODIUM 100 MG CAPSULE (FP) PO SCH ×3 (06:09→21:22)
[2021-04-30] MEDS: METHADONE 160 MG, METHADONE 20 MG PO SCH (06:09)
[2021-04-30] MEDS: CYPROHEPTADINE HCL 4 MG TABLET PO SCH ×3 (06:09→17:18)
[2021-04-30] MEDS: PRENATAL VITAMINS W/ FOLIC ACID TABLET (FP) PO SCH (10:07)
[2021-04-30] MEDS: NICOTINE 14 MG/24 HOURS TOPICAL PATCH TD SCH (10:07)
[2021-04-30] MEDS: BENZTROPINE MESYLATE 1 MG TABLET PO SCH ×2 (10:07→21:22)
[2021-04-30] MEDS: ARIPiprazole 10 MG TABLET PO SCH (10:07)
[2021-04-30] MEDS: hydrOXYzine PAMOATE 25 MG CAPSULE (FP) PO PRN (14:12)
[2021-04-30] MEDS ORDERED: MASKS NR ONE (17:23)
[2021-04-30] MEDS: MELATONIN 5 MG TABLETS PO SCH (21:23)
[2021-04-30] MEDS: THIAMINE HCL 100 MG TABLET (FP) PO SCH (21:23)
[2021-04-30] MEDS: QUEtiapine FUMARATE 200 MG TABLET PO SCH (21:25)
[2021-05-01] MEDS ORDERED: METHADONE HCL 40 MG DISPERSABLE TABLET ONE (03:08)
[2021-05-01] MEDS ORDERED: METHADONE HCL 10 MG TABLET ONE (03:08)
[2021-05-01] MEDS: METHADONE 160 MG, METHADONE 20 MG PO SCH (05:35)
[2021-05-01] MEDS: DOCUSATE SODIUM 100 MG CAPSULE (FP) PO SCH ×3 (05:36→21:12)
[2021-05-01] MEDS: METHOCARBAMOL 500 MG TABLET PO PRN ×3 (05:36→14:14)
[2021-05-01] MEDS: CYPROHEPTADINE HCL 4 MG TABLET PO SCH ×3 (06:21→17:29)
[2021-05-01] MEDS: ARIPiprazole 10 MG TABLET PO SCH (10:15)
[2021-05-01] MEDS: PRENATAL VITAMINS W/ FOLIC ACID TABLET (FP) PO SCH (10:15)
[2021-05-01] MEDS: hydrOXYzine PAMOATE 25 MG CAPSULE (FP) PO PRN ×2 (10:15→14:14)
[2021-05-01] MEDS: BENZTROPINE MESYLATE 1 MG TABLET PO SCH ×2 (10:15→21:14)
[2021-05-01] MEDS: NICOTINE 14 MG/24 HOURS TOPICAL PATCH TD SCH (10:17)
[2021-05-01] MEDS ORDERED: PT OWN MED DRAWER 7, Y5N ONE (14:51)
[2021-05-01] MEDS ORDERED: MASKS NR ONE (21:06)
[2021-05-01] MEDS: MELATONIN 5 MG TABLETS PO SCH (21:13)
[2021-05-01] MEDS: THIAMINE HCL 100 MG TABLET (FP) PO SCH (21:13)
[2021-05-01] MEDS: QUEtiapine FUMARATE 200 MG TABLET PO SCH (21:13)
[2021-05-02] MEDS ORDERED: METHADONE HCL 40 MG DISPERSABLE TABLET ONE (03:10)
[2021-05-02] MEDS ORDERED: METHADONE HCL 10 MG TABLET ONE (03:10)
[2021-05-02] MEDS: METHADONE 160 MG, METHADONE 20 MG PO SCH (05:50)
[2021-05-02] MEDS: DOCUSATE SODIUM 100 MG CAPSULE (FP) PO SCH ×3 (05:50→21:21)
[2021-05-02] MEDS: METHOCARBAMOL 500 MG TABLET PO PRN ×2 (05:50→10:12)
[2021-05-02] MEDS: CYPROHEPTADINE HCL 4 MG TABLET PO SCH ×3 (07:10→17:05)
[2021-05-02] MEDS: PRENATAL VITAMINS W/ FOLIC ACID TABLET (FP) PO SCH (10:11)
[2021-05-02] MEDS: hydrOXYzine PAMOATE 25 MG CAPSULE (FP) PO PRN ×2 (10:12→15:13)
[2021-05-02] MEDS: BENZTROPINE MESYLATE 1 MG TABLET PO SCH ×2 (10:12→21:21)
[2021-05-02] MEDS: NICOTINE 14 MG/24 HOURS TOPICAL PATCH TD SCH (10:12)
[2021-05-02] MEDS: ARIPiprazole 10 MG TABLET PO SCH (10:12)
[2021-05-02] MEDS: QUEtiapine FUMARATE 200 MG TABLET PO SCH (21:21)
[2021-05-02] MEDS: MELATONIN 5 MG TABLETS PO SCH (21:21)
[2021-05-02] MEDS: THIAMINE HCL 100 MG TABLET (FP) PO SCH (21:21)
[2021-05-03] MEDS ORDERED: METHADONE HCL 40 MG DISPERSABLE TABLET ONE (03:10)
[2021-05-03] MEDS ORDERED: METHADONE HCL 10 MG TABLET ONE (03:11)
[2021-05-03] MEDS: METHOCARBAMOL 500 MG TABLET PO PRN ×2 (06:15→13:38)
[2021-05-03] MEDS: METHADONE 160 MG, METHADONE 20 MG PO SCH (06:15)
[2021-05-03] MEDS: DOCUSATE SODIUM 100 MG CAPSULE (FP) PO SCH ×3 (06:15→22:00)
[2021-05-03] MEDS: CYPROHEPTADINE HCL 4 MG TABLET PO SCH ×3 (06:15→17:15)
[2021-05-03] MEDS: PRENATAL VITAMINS W/ FOLIC ACID TABLET (FP) PO SCH (10:06)
[2021-05-03] MEDS: NICOTINE 14 MG/24 HOURS TOPICAL PATCH TD SCH (10:07)
[2021-05-03] MEDS: ARIPiprazole 10 MG TABLET PO SCH (10:07)
[2021-05-03] MEDS: BENZTROPINE MESYLATE 1 MG TABLET PO SCH ×2 (10:07→22:00)
[2021-05-03] MEDS: QUEtiapine FUMARATE 200 MG TABLET PO SCH (22:00)
[2021-05-03] MEDS: THIAMINE HCL 100 MG TABLET (FP) PO SCH (22:00)
[2021-05-03] MEDS: MELATONIN 5 MG TABLETS PO SCH (22:00)
[2021-05-04] MEDS ORDERED: METHADONE HCL 40 MG DISPERSABLE TABLET ONE (03:13)
[2021-05-04] MEDS ORDERED: METHADONE HCL 10 MG TABLET ONE (03:14)
[2021-05-04] MEDS: DOCUSATE SODIUM 100 MG CAPSULE (FP) PO SCH ×3 (06:10→21:25)
[2021-05-04] MEDS: METHOCARBAMOL 500 MG TABLET PO PRN (06:10)
[2021-05-04] MEDS: METHADONE 160 MG, METHADONE 20 MG PO SCH (06:10)
[2021-05-04] MEDS: CYPROHEPTADINE HCL 4 MG TABLET PO SCH ×3 (06:10→16:35)
[2021-05-04] MEDS: BENZTROPINE MESYLATE 1 MG TABLET PO SCH ×2 (09:56→21:25)
[2021-05-04] MEDS: NICOTINE 14 MG/24 HOURS TOPICAL PATCH TD SCH (09:56)
[2021-05-04] MEDS: ARIPiprazole 10 MG TABLET PO SCH (09:56)
[2021-05-04] MEDS: PRENATAL VITAMINS W/ FOLIC ACID TABLET (FP) PO SCH (09:56)
[2021-05-04] MEDS: ACETAMINOPHEN 325 MG TABLET (FP) PO PRN (09:57)
[2021-05-04] MEDS: QUEtiapine FUMARATE 200 MG TABLET PO SCH (21:25)
[2021-05-04] MEDS: THIAMINE HCL 100 MG TABLET (FP) PO SCH (21:25)
[2021-05-04] MEDS: MELATONIN 5 MG TABLETS PO SCH (21:25)
[2021-05-05] MEDS ORDERED: METHADONE HCL 10 MG TABLET ONE (03:05)
[2021-05-05] MEDS ORDERED: METHADONE HCL 40 MG DISPERSABLE TABLET ONE (03:05)
[2021-05-05] MEDS: CYPROHEPTADINE HCL 4 MG TABLET PO SCH ×3 (06:02→17:06)
[2021-05-05] MEDS: DOCUSATE SODIUM 100 MG CAPSULE (FP) PO SCH ×3 (06:02→21:22)
[2021-05-05] MEDS: METHADONE 160 MG, METHADONE 20 MG PO SCH (06:02)
[2021-05-05] MEDS: METHOCARBAMOL 500 MG TABLET PO PRN ×3 (06:02→14:49)
[2021-05-05] MEDS: hydrOXYzine PAMOATE 25 MG CAPSULE (FP) PO PRN ×2 (10:12→14:49)
[2021-05-05] MEDS: ARIPiprazole 10 MG TABLET PO SCH (10:12)
[2021-05-05] MEDS: BENZTROPINE MESYLATE 1 MG TABLET PO SCH ×2 (10:13→21:23)
[2021-05-05] MEDS: NICOTINE 14 MG/24 HOURS TOPICAL PATCH TD SCH (10:13)
[2021-05-05] MEDS: PRENATAL VITAMINS W/ FOLIC ACID TABLET (FP) PO SCH (10:13)
[2021-05-05] MEDS: QUEtiapine FUMARATE 200 MG TABLET PO SCH (21:23)
[2021-05-05] MEDS: THIAMINE HCL 100 MG TABLET (FP) PO SCH (21:23)
[2021-05-05] MEDS: MELATONIN 5 MG TABLETS PO SCH (21:23)
[2021-05-06] MEDS ORDERED: METHADONE HCL 10 MG TABLET ONE (03:08)
[2021-05-06] MEDS ORDERED: METHADONE HCL 40 MG DISPERSABLE TABLET ONE (03:08)
[2021-05-06] MEDS: METHADONE 160 MG, METHADONE 20 MG PO SCH (06:13)
[2021-05-06] MEDS: CYPROHEPTADINE HCL 4 MG TABLET PO SCH ×3 (06:14→17:04)
[2021-05-06] MEDS: DOCUSATE SODIUM 100 MG CAPSULE (FP) PO SCH ×3 (06:14→21:14)
[2021-05-06] MEDS: METHOCARBAMOL 500 MG TABLET PO PRN ×3 (06:14→15:05)
[2021-05-06] MEDS: PRENATAL VITAMINS W/ FOLIC ACID TABLET (FP) PO SCH (10:18)
[2021-05-06] MEDS: hydrOXYzine PAMOATE 25 MG CAPSULE (FP) PO PRN ×2 (10:18→15:05)
[2021-05-06] MEDS: BENZTROPINE MESYLATE 1 MG TABLET PO SCH ×2 (10:18→21:15)
[2021-05-06] MEDS: ARIPiprazole 10 MG TABLET PO SCH (10:18)
[2021-05-06] MEDS: NICOTINE 14 MG/24 HOURS TOPICAL PATCH TD SCH (10:19)
[2021-05-06] MEDS: QUEtiapine FUMARATE 200 MG TABLET PO SCH (21:14)
[2021-05-06] MEDS: THIAMINE HCL 100 MG TABLET (FP) PO SCH (21:15)
[2021-05-06] MEDS: MELATONIN 5 MG TABLETS PO SCH (21:15)
[2021-05-07] MEDS ORDERED: METHADONE HCL 10 MG TABLET ONE (04:21)
[2021-05-07] MEDS ORDERED: METHADONE HCL 40 MG DISPERSABLE TABLET ONE (04:21)
[2021-05-07] MEDS ORDERED: METHADONE 160 MG, METHADONE 20 MG PO SCH (06:00)
[2021-05-07] MEDS: CYPROHEPTADINE HCL 4 MG TABLET PO SCH (06:13)
[2021-05-07] MEDS: DOCUSATE SODIUM 100 MG CAPSULE (FP) PO SCH (06:13)
[2021-05-07] MEDS: METHOCARBAMOL 500 MG TABLET PO PRN ×2 (06:13→09:12)
[2021-05-07 08:52] VITALS: BP 107/64; PULSE 80; TEMP 97.8
[2021-05-07] MEDS: hydrOXYzine PAMOATE 25 MG CAPSULE (FP) PO PRN (09:12)
[2021-05-07] MEDS: ARIPiprazole 10 MG TABLET PO SCH (09:12)
[2021-05-07] MEDS: BENZTROPINE MESYLATE 1 MG TABLET PO SCH (09:12)
[2021-05-07] MEDS: PRENATAL VITAMINS W/ FOLIC ACID TABLET (FP) PO SCH (09:12)
[2021-05-07] MEDS: NICOTINE 14 MG/24 HOURS TOPICAL PATCH TD SCH (09:12)
== END 2021-05-07 09:42 | disposition home or self-care (01) | DRG 772 ==
LOC: YASAS 11:53 → Y3W 11:54
PROVIDERS: ADMIT Allergy & Immunology; ATTEND Allergy & Immunology
PROC: HZ42ZZZ Group Counseling for Substance Abuse Treatment, Cognitive-Behavioral (ICD-10-PCS; principal; 2021-04-11)
DX: F10.20 Alcohol dependence, uncomplicated (principal); F13.20 Sedative, hypnotic or anxiolytic dependence, uncomplicated; F11.20 Opioid dependence, uncomplicated; F12.20 Cannabis dependence, uncomplicated; F17.210 Nicotine dependence, cigarettes, uncomplicated; F19.282 Other psychoactive substance dependence with psychoactive substance-induced sleep disorder; F19.24 Other psychoactive substance dependence with psychoactive substance-induced mood disorder; F31.9 Bipolar disorder, unspecified; F41.9 Anxiety disorder, unspecified; G47.00 Insomnia, unspecified; J45.20 Mild intermittent asthma, uncomplicated; K59.00 Constipation, unspecified; Z56.0 Unemployment, unspecified; Z59.0 Homelessness; Z91.19 Patient's noncompliance with other medical treatment and regimen
CPT/HCPCS: C9803; U0003; U0005

== ENCOUNTER 2021-09-15 11:23 | Inpatient (IN) | payer OTHER ==
[2021-09-15 12:39] VITALS: BMI 33.9
[2021-09-15] MEDS ORDERED: MAGNESIUM HYDROX 2400MG/30ML ORAL SUSPENSION 30 ML CUP PO PRN (13:22)
[2021-09-15] MEDS ORDERED: ACETAMINOPHEN 325 MG TABLET (FP) PO PRN ×2 (13:22)
[2021-09-15] MEDS ORDERED: IBUPROFEN 400 MG TABLET (FP) PO PRN (13:22)
[2021-09-15] MEDS ORDERED: MENTHOL/PHENOL 1 EACH UD MM PRN (13:22)
[2021-09-15] MEDS ORDERED: ONDANSETRON *ODT* 4 MG TABLET SL PRN (13:22)
[2021-09-15] MEDS ORDERED: MAG HYDROX/AL HYDROX/SIMETH 30 ML UNIT-DOSE CUP PO PRN (13:22)
[2021-09-15] MEDS ORDERED: MAGNESIUM CITRATE 300 ML BOTTLE PO PRN (13:22)
[2021-09-15] MEDS ORDERED: BISMUTH SUBSALICYLATE 524 MG/30 ML PO PRN (13:22)
[2021-09-15] MEDS ORDERED: hydrOXYzine PAMOATE 25 MG CAPSULE (FP) PO ONE (14:42)
[2021-09-15] MEDS ORDERED: diazePAM 5 MG TABLET ONE (14:42)
[2021-09-15] MEDS: hydrOXYzine PAMOATE 25 MG CAPSULE (FP) PO SCH ×3 (14:47→22:36)
[2021-09-15] MEDS: diazePAM 5 MG TABLET PO PRN (14:47)
[2021-09-15] MEDS: diazePAM 5 MG TABLET PO SCH ×2 (18:35→22:36)
[2021-09-15] MEDS ORDERED: MELATONIN 5 MG TABLETS PO SCH (22:00)
[2021-09-15] MEDS: THIAMINE HCL 100 MG TABLET (FP) PO SCH (22:36)
[2021-09-15] MEDS: METHOCARBAMOL 500 MG TABLET PO PRN (22:37)
[2021-09-16] MEDS: hydrOXYzine PAMOATE 25 MG CAPSULE (FP) PO SCH ×5 (05:52→22:24)
[2021-09-16] MEDS: diazePAM 5 MG TABLET PO SCH ×4 (05:52→22:24)
[2021-09-16] MEDS: METHOCARBAMOL 500 MG TABLET PO PRN ×2 (05:53→12:35)
[2021-09-16] MEDS: methaDONE HCL 40 MG DISPERSABLE TABLET PO SCH (07:37)
[2021-09-16] MEDS: NICOTINE 10 MG CARTRIDGE (INHALER) IH PRN ×2 (09:03→17:51)
[2021-09-16 10:05] LABS: HEMATOCRIT 41.4 % (35.4-49); HEMOGLOBIN 13.9 GM/dL (11.7-16.9); MCH 30.9 pg (25.7-33.7); MCHC 33.6 g/dl (32.0-35.9); MEAN CELL VOLUME 91.9 fl (80-96); MEAN PLT VOLUME 9.4 fl (7.5-11.1); PLATELET COUNT 215 10^3/uL (134-434); RDW 16.2 % (11.9-15.9); WHITE BLOOD COUNT 10.4 K/mm3 (4.0-10.0)
[2021-09-16 10:11] LABS: ALBUMIN 3.7 g/dl (3.4-5.0); CALCIUM 9.1 mg/dL (8.5-10.1)
[2021-09-16] MEDS: PRENATAL VITAMINS W/ FOLIC ACID TABLET (FP) PO SCH (10:11)
[2021-09-16 10:15] LABS: CREATININE 0.8 mg/dL (0.55-1.3)
[2021-09-16 10:16] LABS: BILIRUBIN,TOTAL 0.2 mg/dL (0.2-1)
[2021-09-16 10:28] LABS: TOT PROT 7.8 g/dl (6.4-8.2)
[2021-09-16] MEDS: QUEtiapine FUMARATE 100 MG TABLET (FP) PO SCH (22:24)
[2021-09-16] MEDS: THIAMINE HCL 100 MG TABLET (FP) PO SCH (22:24)
[2021-09-17] MEDS: hydrOXYzine PAMOATE 25 MG CAPSULE (FP) PO SCH ×5 (05:38→22:17)
[2021-09-17] MEDS: diazePAM 5 MG TABLET PO SCH ×3 (05:38→22:18)
[2021-09-17] MEDS: methaDONE HCL 40 MG DISPERSABLE TABLET PO SCH (05:38)
[2021-09-17] MEDS: METHOCARBAMOL 500 MG TABLET PO PRN ×2 (10:29→22:19)
[2021-09-17] MEDS: PRENATAL VITAMINS W/ FOLIC ACID TABLET (FP) PO SCH (10:29)
[2021-09-17] MEDS: diazePAM 5 MG TABLET PO PRN ×2 (10:29→18:58)
[2021-09-17] MEDS: NICOTINE 10 MG CARTRIDGE (INHALER) IH PRN (18:55)
[2021-09-17] MEDS: QUEtiapine FUMARATE 100 MG TABLET (FP) PO SCH (22:17)
[2021-09-17] MEDS: THIAMINE HCL 100 MG TABLET (FP) PO SCH (22:17)
[2021-09-18] MEDS: diazePAM 5 MG TABLET PO SCH ×2 (06:12→17:13)
[2021-09-18] MEDS: hydrOXYzine PAMOATE 25 MG CAPSULE (FP) PO SCH ×5 (06:12→22:14)
[2021-09-18] MEDS: methaDONE HCL 40 MG DISPERSABLE TABLET PO SCH (06:13)
[2021-09-18] MEDS: PRENATAL VITAMINS W/ FOLIC ACID TABLET (FP) PO SCH (10:09)
[2021-09-18] MEDS: METHOCARBAMOL 500 MG TABLET PO PRN ×2 (10:11→15:59)
[2021-09-18] MEDS: diazePAM 5 MG TABLET PO PRN (10:12)
[2021-09-18] MEDS: QUEtiapine FUMARATE 100 MG TABLET (FP) PO SCH (22:14)
[2021-09-18] MEDS: THIAMINE HCL 100 MG TABLET (FP) PO SCH (22:14)
[2021-09-19] MEDS: hydrOXYzine PAMOATE 25 MG CAPSULE (FP) PO SCH ×2 (05:53→10:03)
[2021-09-19] MEDS: methaDONE HCL 40 MG DISPERSABLE TABLET PO SCH (05:54)
[2021-09-19] MEDS ORDERED: diazePAM 5 MG TABLET PO ONE (06:00)
[2021-09-19 09:59] VITALS: BP 116/82; PULSE 98; TEMP 98.1
[2021-09-19] MEDS: NICOTINE 10 MG CARTRIDGE (INHALER) IH PRN (10:03)
[2021-09-19] MEDS: PRENATAL VITAMINS W/ FOLIC ACID TABLET (FP) PO SCH (10:03)
== END 2021-09-19 10:12 | disposition other institution (70) | DRG 773 ==
LOC: YASAS 11:23 → Y6N 15:17
PROVIDERS: ADMIT Allergy & Immunology; ATTEND Allergy & Immunology
PROC: HZ2ZZZZ Detoxification Services for Substance Abuse Treatment (ICD-10-PCS; principal; 2021-09-15)
DX: F10.230 Alcohol dependence with withdrawal, uncomplicated (principal); F13.230 Sedative, hypnotic or anxiolytic dependence with withdrawal, uncomplicated; F11.20 Opioid dependence, uncomplicated; F12.20 Cannabis dependence, uncomplicated; F19.282 Other psychoactive substance dependence with psychoactive substance-induced sleep disorder; F41.9 Anxiety disorder, unspecified; F41.0 Panic disorder [episodic paroxysmal anxiety]; F39 Unspecified mood [affective] disorder; F40.10 Social phobia, unspecified; Z86.69 Personal history of other diseases of the nervous system and sense organs; Z59.02 Unsheltered homelessness; Z91.013 Allergy to seafood
CPT/HCPCS: 36415; 80053; 85027; 86780; C9803; U0003; U0005

== ENCOUNTER 2022-03-31 14:08 | Inpatient (IN) | payer OTHER ==
[2022-03-31] MEDS ORDERED: BISMUTH SUBSALICYLATE 524 MG/30 ML PO PRN (15:58)
[2022-03-31] MEDS ORDERED: MAGNESIUM CITRATE 300 ML BOTTLE PO PRN (15:58)
[2022-03-31] MEDS ORDERED: METHOCARBAMOL 500 MG TABLET PO PRN (15:58)
[2022-03-31] MEDS ORDERED: ACETAMINOPHEN 325 MG TABLET (FP) PO PRN ×2 (15:58)
[2022-03-31] MEDS ORDERED: DICYCLOMINE HCL 10 MG CAPSULE PO PRN (15:58)
[2022-03-31] MEDS ORDERED: diazePAM 5 MG TABLET PO PRN (15:58)
[2022-03-31] MEDS ORDERED: IBUPROFEN 400 MG TABLET (FP) PO PRN (15:58)
[2022-03-31] MEDS ORDERED: MAG HYDROX/AL HYDROX/SIMETH 30 ML UNIT-DOSE CUP PO PRN (15:58)
[2022-03-31] MEDS ORDERED: BENZOCAINE/MENTHOL (CHLORASEPTIC ) LOZENGE MM PRN (15:58)
[2022-03-31] MEDS ORDERED: ONDANSETRON *ODT* 4 MG TABLET SL PRN (15:58)
[2022-03-31] MEDS ORDERED: NALOXONE HCL (KLOXXADO) 8 MG SPRAY NS PRN (15:58)
[2022-03-31] MEDS ORDERED: LOPERAMIDE HCL 2 MG CAPSULE PO PRN (15:58)
[2022-03-31] MEDS ORDERED: MAGNESIUM HYDROX 2400MG/30ML ORAL SUSPENSION 30 ML CUP PO PRN (15:58)
[2022-03-31 17:34] VITALS: BMI 32.5
[2022-03-31] MEDS: hydrOXYzine PAMOATE 25 MG CAPSULE (FP) PO SCH ×2 (20:56→22:59)
[2022-03-31] MEDS: diazePAM 5 MG TABLET PO SCH ×2 (20:56→22:59)
[2022-03-31] MEDS: PRENATAL VITAMINS W/ FOLIC ACID TABLET (FP) PO SCH (20:58)
[2022-03-31] MEDS: NICOTINE 21 MG/24 HOURS TOPICAL PATCH TD SCH (20:59)
[2022-03-31] MEDS: MELATONIN 5 MG TABLETS PO SCH (22:58)
[2022-03-31] MEDS: THIAMINE HCL 100 MG TABLET (FP) PO SCH (22:58)
[2022-04-01] MEDS: diazePAM 5 MG TABLET PO SCH ×4 (05:41→23:18)
[2022-04-01] MEDS: hydrOXYzine PAMOATE 25 MG CAPSULE (FP) PO SCH ×5 (05:42→23:18)
[2022-04-01] MEDS: PRENATAL VITAMINS W/ FOLIC ACID TABLET (FP) PO SCH (10:11)
[2022-04-01] MEDS: NICOTINE 10 MG CARTRIDGE (INHALER) IH PRN (10:12)
[2022-04-01] MEDS: NICOTINE 21 MG/24 HOURS TOPICAL PATCH TD SCH (10:44)
[2022-04-01 11:08] LABS: HEMATOCRIT 38.2 % (35.4-49); HEMOGLOBIN 12.8 GM/dL (11.7-16.9); MCHC 33.6 g/dl (32.0-35.9); MEAN CELL VOLUME 92.1 fl (80-96); PLATELET COUNT 205 10^3/uL (134-434); RBC 4.14 M/mm3 (4.00-5.60); RDW 16.7 % (11.9-15.9); WHITE BLOOD COUNT 5.8 K/mm3 (4.0-10.0)
[2022-04-01 11:23] LABS: ALBUMIN 3.2 g/dl (3.4-5.0); CALCIUM 8.7 mg/dL (8.5-10.1)
[2022-04-01 11:26] LABS: CREATININE 0.6 mg/dL (0.55-1.3)
[2022-04-01 11:28] LABS: BILIRUBIN,TOTAL 0.3 mg/dL (0.2-1); TOT PROT 6.7 g/dl (6.4-8.2)
[2022-04-01 14:08] LABS: SARS-CoV-2 NAA Not Detected (Not Detected)
[2022-04-01] MEDS ORDERED: methaDONE 80 MG, methaDONE 20 MG PO ONE (16:31)
[2022-04-01] MEDS ORDERED: methaDONE HCL 10 MG TABLET PO ONE (16:31)
[2022-04-01] MEDS ORDERED: methaDONE HCL 10 MG TABLET ONE (17:59)
[2022-04-01] MEDS ORDERED: methaDONE HCL 40 MG DISPERSABLE TABLET ONE (18:00)
[2022-04-01] MEDS: MELATONIN 5 MG TABLETS PO SCH (23:17)
[2022-04-01] MEDS: BENZTROPINE MESYLATE 1 MG TABLET PO SCH (23:17)
[2022-04-01] MEDS: THIAMINE HCL 100 MG TABLET (FP) PO SCH (23:17)
[2022-04-01] MEDS: QUEtiapine FUMARATE 50 MG TABLET PO SCH (23:18)
[2022-04-02] MEDS ORDERED: methaDONE HCL 10 MG TABLET ONE (04:30)
[2022-04-02] MEDS ORDERED: methaDONE HCL 40 MG DISPERSABLE TABLET ONE (04:30)
[2022-04-02] MEDS: hydrOXYzine PAMOATE 25 MG CAPSULE (FP) PO SCH ×5 (05:59→22:39)
[2022-04-02] MEDS: diazePAM 5 MG TABLET PO SCH ×2 (06:00→13:56)
[2022-04-02] MEDS: methaDONE 80 MG, methaDONE 20 MG PO SCH (06:00)
[2022-04-02] MEDS ORDERED: methaDONE HCL 10 MG TABLET PO SCH (06:00)
[2022-04-02] MEDS: PRENATAL VITAMINS W/ FOLIC ACID TABLET (FP) PO SCH (10:19)
[2022-04-02] MEDS: NICOTINE 10 MG CARTRIDGE (INHALER) IH PRN ×2 (10:19→22:45)
[2022-04-02] MEDS: NICOTINE 21 MG/24 HOURS TOPICAL PATCH TD SCH (10:20)
[2022-04-02] MEDS ORDERED: chlordiazePOXIDE HCL 25 MG CAPSULE PO PRN (15:42)
[2022-04-02] MEDS: chlordiazePOXIDE HCL 25 MG CAPSULE PO SCH ×2 (17:42→22:44)
[2022-04-02] MEDS: QUEtiapine FUMARATE 50 MG TABLET PO SCH (22:39)
[2022-04-02] MEDS: THIAMINE HCL 100 MG TABLET (FP) PO SCH (22:39)
[2022-04-02] MEDS: BENZTROPINE MESYLATE 1 MG TABLET PO SCH (22:39)
[2022-04-02] MEDS: MELATONIN 5 MG TABLETS PO SCH (22:44)
[2022-04-03 00:14] LABS: SARS-CoV-2 NAA Not Detected (Not Detected)
[2022-04-03] MEDS ORDERED: methaDONE HCL 10 MG TABLET ONE (04:48)
[2022-04-03] MEDS ORDERED: methaDONE HCL 40 MG DISPERSABLE TABLET ONE (04:49)
[2022-04-03] MEDS ORDERED: diazePAM 5 MG TABLET PO SCH (06:00)
[2022-04-03] MEDS: methaDONE 80 MG, methaDONE 20 MG PO SCH (06:12)
[2022-04-03] MEDS: chlordiazePOXIDE HCL 25 MG CAPSULE PO SCH ×4 (06:13→23:00)
[2022-04-03] MEDS: hydrOXYzine PAMOATE 25 MG CAPSULE (FP) PO SCH ×5 (06:13→22:59)
[2022-04-03] MEDS: NICOTINE 10 MG CARTRIDGE (INHALER) IH PRN (10:59)
[2022-04-03] MEDS: PRENATAL VITAMINS W/ FOLIC ACID TABLET (FP) PO SCH (10:59)
[2022-04-03] MEDS: NICOTINE 21 MG/24 HOURS TOPICAL PATCH TD SCH (10:59)
[2022-04-03] MEDS: THIAMINE HCL 100 MG TABLET (FP) PO SCH (22:59)
[2022-04-03] MEDS: MELATONIN 5 MG TABLETS PO SCH (23:00)
[2022-04-03] MEDS: BENZTROPINE MESYLATE 1 MG TABLET PO SCH (23:00)
[2022-04-03] MEDS: QUEtiapine FUMARATE 50 MG TABLET PO SCH (23:00)
[2022-04-04] MEDS ORDERED: methaDONE HCL 10 MG TABLET ONE (04:56)
[2022-04-04] MEDS ORDERED: methaDONE HCL 40 MG DISPERSABLE TABLET ONE (04:57)
[2022-04-04] MEDS ORDERED: chlordiazePOXIDE HCL 25 MG CAPSULE PO SCH (05:00)
[2022-04-04] MEDS ORDERED: diazePAM 5 MG TABLET PO ONE (06:00)
[2022-04-04] MEDS: methaDONE 80 MG, methaDONE 20 MG PO SCH (06:34)
[2022-04-04] MEDS: hydrOXYzine PAMOATE 25 MG CAPSULE (FP) PO SCH (06:35)
[2022-04-04 09:00] VITALS: BP 117/89; PULSE 100; TEMP 97
[2022-04-05] MEDS ORDERED: chlordiazePOXIDE HCL 10 MG CAPSULE PO PRN
[2022-04-05] MEDS ORDERED: chlordiazePOXIDE HCL 10 MG CAPSULE PO SCH (05:00)
[2022-04-06] MEDS ORDERED: chlordiazePOXIDE HCL 10 MG CAPSULE PO SCH (05:00)
[2022-04-07] MEDS ORDERED: chlordiazePOXIDE HCL 10 MG CAPSULE PO ONE (05:00)
== END 2022-04-04 09:19 | disposition home or self-care (01) | DRG 773 ==
LOC: YASAS 14:08 → Y3N 17:34 → UNDOADMIN 17:34 → Y3N 20:11
PROVIDERS: ADMIT Allergy & Immunology; ATTEND Surgery
PROC: HZ2ZZZZ Detoxification Services for Substance Abuse Treatment (ICD-10-PCS; principal; 2022-03-31)
DX: F11.23 Opioid dependence with withdrawal (principal); F13.20 Sedative, hypnotic or anxiolytic dependence, uncomplicated; F10.20 Alcohol dependence, uncomplicated; F12.20 Cannabis dependence, uncomplicated; F19.24 Other psychoactive substance dependence with psychoactive substance-induced mood disorder; G47.00 Insomnia, unspecified; Z87.09 Personal history of other diseases of the respiratory system; Z86.59 Personal history of other mental and behavioral disorders; Z91.19 Patient's noncompliance with other medical treatment and regimen
CPT/HCPCS: 36415; 80053; 85027; 86780; C9803-CS; U0003; U0005

== ENCOUNTER 2022-07-07 15:12 | Inpatient (IN) | payer OTHER ==
[2022-07-07 16:26] VITALS: BMI 32.1
[2022-07-07] MEDS ORDERED: MAGNESIUM CITRATE 300 ML BOTTLE PO PRN (16:45)
[2022-07-07] MEDS ORDERED: IBUPROFEN 400 MG TABLET (FP) PO PRN (16:45)
[2022-07-07] MEDS ORDERED: BISMUTH SUBSALICYLATE 524 MG/30 ML PO PRN (16:45)
[2022-07-07] MEDS ORDERED: LOPERAMIDE HCL 2 MG CAPSULE PO PRN (16:45)
[2022-07-07] MEDS ORDERED: BENZOCAINE/MENTHOL (CHLORASEPTIC ) LOZENGE MM PRN (16:45)
[2022-07-07] MEDS ORDERED: MAGNESIUM HYDROX 2400MG/30ML ORAL SUSPENSION 30 ML CUP PO PRN (16:45)
[2022-07-07] MEDS ORDERED: ACETAMINOPHEN 325 MG TABLET (FP) PO PRN (16:45)
[2022-07-07] MEDS ORDERED: chlordiazePOXIDE HCL 25 MG CAPSULE PO PRN ×2 (16:45→19:09)
[2022-07-07] MEDS ORDERED: MAG HYDROX/AL HYDROX/SIMETH 30 ML UNIT-DOSE CUP PO PRN (16:45)
[2022-07-07] MEDS ORDERED: DICYCLOMINE HCL 10 MG CAPSULE PO PRN (16:45)
[2022-07-07] MEDS ORDERED: chlordiazePOXIDE HCL 25 MG CAPSULE PO SCH (17:00)
[2022-07-08] MEDS ORDERED: METHOCARBAMOL 500 MG TABLET ONE (02:07)
[2022-07-08] MEDS ORDERED: ONDANSETRON *ODT* 4 MG TABLET ONE (02:07)
[2022-07-08] MEDS ORDERED: chlordiazePOXIDE HCL 25 MG CAPSULE ONE ×2 (02:07→05:58)
[2022-07-08] MEDS: METHOCARBAMOL 500 MG TABLET PO PRN ×2 (02:13→22:14)
[2022-07-08] MEDS: ONDANSETRON *ODT* 4 MG TABLET SL PRN ×2 (02:13→16:47)
[2022-07-08] MEDS: THIAMINE HCL 100 MG TABLET (FP) PO SCH ×2 (02:56→22:12)
[2022-07-08] MEDS: hydrOXYzine PAMOATE 25 MG CAPSULE (FP) PO SCH ×7 (02:56→22:12)
[2022-07-08] MEDS: MELATONIN 5 MG TABLETS PO SCH ×2 (02:56→22:12)
[2022-07-08] MEDS: chlordiazePOXIDE HCL 25 MG CAPSULE PO SCH ×6 (02:57→18:04)
[2022-07-08] MEDS ORDERED: hydrOXYzine PAMOATE 25 MG CAPSULE (FP) PO ONE (05:59)
[2022-07-08] MEDS ORDERED: methaDONE HCL 10 MG TABLET PO SCH (09:00)
[2022-07-08] MEDS: PRENATAL VITAMINS W/ FOLIC ACID TABLET (FP) PO SCH (10:16)
[2022-07-08 12:10] LABS: HEMATOCRIT 38.4 % (35.4-49); HEMOGLOBIN 13.2 GM/dL (11.7-16.9); MCH 32.1 pg (25.7-33.7); MCHC 34.4 g/dl (32.0-35.9); MEAN CELL VOLUME 93.2 fl (80-96); MEAN PLT VOLUME 9.1 fl (7.5-11.1); PLATELET COUNT 206 10^3/uL (134-434); RBC 4.12 M/mm3 (4.00-5.60); RDW 16.2 % (11.9-15.9); WHITE BLOOD COUNT 11.4 K/mm3 (4.0-10.0)
[2022-07-08 12:25] LABS: ALBUMIN 3.5 g/dl (3.4-5.0)
[2022-07-08 12:26] LABS: BLOOD UREA NITROGEN 7.9 mg/dL (7-18); CALCIUM 8.7 mg/dL (8.5-10.1)
[2022-07-08 12:29] LABS: CREATININE 0.7 mg/dL (0.55-1.3)
[2022-07-08 12:31] LABS: BILIRUBIN,TOTAL 0.4 mg/dL (0.2-1); TOT PROT 6.8 g/dl (6.4-8.2)
[2022-07-08] MEDS: ACETAMINOPHEN 325 MG TABLET (FP) PO PRN (16:46)
[2022-07-08] MEDS: IBUPROFEN 600 MG TABLET (FP) PO PRN (18:04)
[2022-07-08] MEDS ORDERED: diazePAM 5 MG TABLET PO ONE (18:57)
[2022-07-08] MEDS: NICOTINE 10 MG CARTRIDGE (INHALER) IH PRN (19:36)
[2022-07-08] MEDS: diazePAM 5 MG TABLET PO PRN (22:13)
[2022-07-09] MEDS ORDERED: chlordiazePOXIDE HCL 10 MG CAPSULE PO PRN
[2022-07-09] MEDS: ACETAMINOPHEN 325 MG TABLET (FP) PO PRN (02:36)
[2022-07-09] MEDS: ONDANSETRON *ODT* 4 MG TABLET SL PRN (02:36)
[2022-07-09] MEDS ORDERED: chlordiazePOXIDE HCL 25 MG CAPSULE PO SCH (05:00)
[2022-07-09] MEDS ORDERED: chlordiazePOXIDE HCL 10 MG CAPSULE PO SCH (05:00)
[2022-07-09] MEDS: hydrOXYzine PAMOATE 25 MG CAPSULE (FP) PO SCH ×5 (05:24→21:16)
[2022-07-09] MEDS: diazePAM 5 MG TABLET PO SCH ×4 (05:24→22:00)
[2022-07-09] MEDS: PRENATAL VITAMINS W/ FOLIC ACID TABLET (FP) PO SCH (10:39)
[2022-07-09] MEDS: diazePAM 5 MG TABLET PO PRN (14:52)
[2022-07-09] MEDS: IBUPROFEN 600 MG TABLET (FP) PO PRN (17:58)
[2022-07-09] MEDS: MELATONIN 5 MG TABLETS PO SCH (21:17)
[2022-07-09] MEDS: THIAMINE HCL 100 MG TABLET (FP) PO SCH (22:19)
[2022-07-10] MEDS ORDERED: chlordiazePOXIDE HCL 10 MG CAPSULE PO PRN
[2022-07-10] MEDS: diazePAM 5 MG TABLET PO PRN ×3 (00:33→17:49)
[2022-07-10] MEDS ORDERED: chlordiazePOXIDE HCL 10 MG CAPSULE PO SCH ×2 (05:00)
[2022-07-10] MEDS: diazePAM 5 MG TABLET PO SCH ×3 (05:10→22:18)
[2022-07-10] MEDS: hydrOXYzine PAMOATE 25 MG CAPSULE (FP) PO SCH ×5 (05:11→22:18)
[2022-07-10] MEDS: NICOTINE 10 MG CARTRIDGE (INHALER) IH PRN (05:11)
[2022-07-10] MEDS: PRENATAL VITAMINS W/ FOLIC ACID TABLET (FP) PO SCH (10:31)
[2022-07-10] MEDS: ACETAMINOPHEN 325 MG TABLET (FP) PO PRN (10:34)
[2022-07-10 11:29] LABS: HEMATOCRIT 42.7 % (35.4-49); HEMOGLOBIN 13.9 GM/dL (11.7-16.9); MCH 30.7 pg (25.7-33.7); MCHC 32.5 g/dl (32.0-35.9); MEAN CELL VOLUME 94.5 fl (80-96); MEAN PLT VOLUME 8.8 fl (7.5-11.1); PLATELET COUNT 256 10^3/uL (134-434); RBC 4.52 M/mm3 (4.00-5.60); RDW 15.8 % (11.9-15.9); WHITE BLOOD COUNT 8.8 K/mm3 (4.0-10.0)
[2022-07-10] MEDS: ONDANSETRON *ODT* 4 MG TABLET SL PRN (14:19)
[2022-07-10] MEDS: IBUPROFEN 600 MG TABLET (FP) PO PRN (14:22)
[2022-07-10] MEDS ORDERED: QUEtiapine FUMARATE 200 MG TABLET PO SCH (22:00)
[2022-07-10] MEDS: QUEtiapine FUMARATE 100 MG TABLET (FP) PO SCH (22:18)
[2022-07-10] MEDS: MELATONIN 5 MG TABLETS PO SCH (22:20)
[2022-07-10] MEDS: THIAMINE HCL 100 MG TABLET (FP) PO SCH (22:20)
[2022-07-11] MEDS ORDERED: chlordiazePOXIDE HCL 10 MG CAPSULE PO SCH (05:00)
[2022-07-11] MEDS ORDERED: chlordiazePOXIDE HCL 10 MG CAPSULE PO ONE (05:00)
[2022-07-11] MEDS: diazePAM 5 MG TABLET PO SCH ×2 (05:08→17:40)
[2022-07-11] MEDS: hydrOXYzine PAMOATE 25 MG CAPSULE (FP) PO SCH ×5 (05:09→22:18)
[2022-07-11] MEDS: PRENATAL VITAMINS W/ FOLIC ACID TABLET (FP) PO SCH (09:45)
[2022-07-11] MEDS: ONDANSETRON *ODT* 4 MG TABLET SL PRN (11:44)
[2022-07-11] MEDS: diazePAM 5 MG TABLET PO PRN (11:44)
[2022-07-11] MEDS: IBUPROFEN 600 MG TABLET (FP) PO PRN (11:48)
[2022-07-11 21:07] VITALS: RESP 18
[2022-07-11] MEDS: QUEtiapine FUMARATE 100 MG TABLET (FP) PO SCH (22:18)
[2022-07-11] MEDS: MELATONIN 5 MG TABLETS PO SCH (22:18)
[2022-07-11] MEDS: THIAMINE HCL 100 MG TABLET (FP) PO SCH (22:19)
[2022-07-12] MEDS ORDERED: chlordiazePOXIDE HCL 10 MG CAPSULE PO ONE (05:00)
[2022-07-12] MEDS: hydrOXYzine PAMOATE 25 MG CAPSULE (FP) PO SCH ×2 (05:13→10:12)
[2022-07-12] MEDS ORDERED: diazePAM 5 MG TABLET PO ONE (06:00)
[2022-07-12 09:10] VITALS: BP 140/89; PULSE 86; TEMP 98.6
[2022-07-12] MEDS: PRENATAL VITAMINS W/ FOLIC ACID TABLET (FP) PO SCH (10:13)
[2022-07-12] MEDS: ACETAMINOPHEN 325 MG TABLET (FP) PO PRN (11:42)
== END 2022-07-12 12:33 | disposition other institution (70) | DRG 773 ==
LOC: YASAS 15:12 → Y3N 07-08 09:33
PROVIDERS: ADMIT Allergy & Immunology; ATTEND Surgery
PROC: HZ2ZZZZ Detoxification Services for Substance Abuse Treatment (ICD-10-PCS; principal; 2022-07-08)
DX: F10.230 Alcohol dependence with withdrawal, uncomplicated (principal); F11.20 Opioid dependence, uncomplicated; F13.20 Sedative, hypnotic or anxiolytic dependence, uncomplicated; F12.20 Cannabis dependence, uncomplicated; F17.213 Nicotine dependence, cigarettes, with withdrawal; F19.24 Other psychoactive substance dependence with psychoactive substance-induced mood disorder; F31.9 Bipolar disorder, unspecified; G47.00 Insomnia, unspecified; Z87.09 Personal history of other diseases of the respiratory system; Z91.19 Patient's noncompliance with other medical treatment and regimen; Z91.013 Allergy to seafood
CPT/HCPCS: 36415; 80053; 85027; 86780; 93005; 93010; C9803-CS; Q0162; U0003; U0005

== ENCOUNTER 2023-09-07 16:16 | Inpatient (IN) | payer OTHER ==
[2023-09-07 17:23] VITALS: BMI 38.4
[2023-09-07] MEDS ORDERED: MAG HYDROX/AL HYDROX/SIMETH 30 ML UNIT-DOSE CUP PO PRN (18:32)
[2023-09-07] MEDS ORDERED: ACETAMINOPHEN 325 MG TABLET (FP) PO PRN (18:32)
[2023-09-07] MEDS ORDERED: NALOXONE HCL 0.4 MG/ML VIAL IM PRN (18:32)
[2023-09-07] MEDS ORDERED: BENZONATATE 200 MG CAPSULE PO PRN (18:32)
[2023-09-07] MEDS ORDERED: ONDANSETRON *ODT* 4 MG TABLET SL PRN (18:32)
[2023-09-07] MEDS ORDERED: LOPERAMIDE HCL 2 MG CAPSULE PO PRN (18:32)
[2023-09-07] MEDS ORDERED: BENZOCAINE/MENTHOL (CHLORASEPTIC ) LOZENGE MM PRN (18:32)
[2023-09-07] MEDS ORDERED: POLYETHYLENE GLYCOL (HEALTHYLAX) 3350 17 GM PACKET PO PRN (18:32)
[2023-09-07] MEDS ORDERED: NALOXONE HCL (KLOXXADO) 8 MG SPRAY NS PRN (18:32)
[2023-09-07] MEDS ORDERED: BISMUTH SUBSALICYLATE 524 MG/30 ML PO PRN (18:32)
[2023-09-07] MEDS ORDERED: hydrOXYzine PAMOATE 25 MG CAPSULE (FP) PO PRN (18:32)
[2023-09-07] MEDS ORDERED: IBUPROFEN 400 MG TABLET (FP) PO PRN (18:32)
[2023-09-07] MEDS ORDERED: MAGNESIUM HYDROX 2400MG/30ML ORAL SUSPENSION 30 ML CUP PO PRN (18:32)
[2023-09-07] MEDS ORDERED: guaiFENesin 600 MG TABLET.ER (FP) PO PRN (18:32)
[2023-09-07] MEDS ORDERED: DICYCLOMINE HCL 10 MG CAPSULE PO PRN (18:32)
[2023-09-07] MEDS ORDERED: IBUPROFEN 600 MG TABLET (FP) PO PRN (18:32)
[2023-09-07] MEDS: METHOCARBAMOL 500 MG TABLET PO PRN (19:30)
[2023-09-07] MEDS: diazePAM 5 MG TABLET PO PRN (19:30)
[2023-09-07] MEDS: MELATONIN 5 MG TABLETS PO SCH (22:20)
[2023-09-07] MEDS: diazePAM 5 MG TABLET PO SCH (22:20)
[2023-09-07] MEDS: THIAMINE HCL 100 MG TABLET (FP) PO SCH (22:20)
[2023-09-08] MEDS: diazePAM 5 MG TABLET PO SCH ×4 (05:09→22:12)
[2023-09-08] MEDS ORDERED: methaDONE HCL 40 MG DISPERSABLE TABLET PO SCH (08:30)
[2023-09-08] MEDS ORDERED: methaDONE 40 MG, methaDONE 10 MG PO ONE (08:45)
[2023-09-08] MEDS: PRENATAL VITAMINS W/ FOLIC ACID TABLET (FP) PO SCH (10:07)
[2023-09-08 11:17] LABS: HEMATOCRIT 38.9 % (35.4-49); HEMOGLOBIN 13.2 GM/dL (11.7-16.9); MCHC 33.9 g/dl (32.0-35.9); MEAN CELL VOLUME 91.4 fl (80-96); MEAN PLT VOLUME 8.8 fl (7.5-11.1); PLATELET COUNT 230 10^3/uL (134-434); RBC 4.26 M/mm3 (4.00-5.60); RDW 16.2 % (11.9-15.9); WHITE BLOOD COUNT 9.8 K/mm3 (4.0-10.0)
[2023-09-08 11:29] LABS: CHLORIDE 105 mmol/L (98-107); POTASSIUM 4.7 mmol/L (3.5-5.1); SODIUM 138 mmol/L (136-145)
[2023-09-08 11:48] LABS: ANION GAP 6 mmol/L (4-13); CO2 27 mmol/L (21-32)
[2023-09-08 11:50] LABS: ALBUMIN 3.1 g/dl (3.4-5.0); GLUCOSE,RANDOM 85 mg/dL (74-106)
[2023-09-08 11:52] LABS: CALCIUM 8.4 mg/dL (8.5-10.1)
[2023-09-08 11:54] LABS: BILIRUBIN,TOTAL 0.3 mg/dL (0.2-1); CREATININE 0.7 mg/dL (0.55-1.3); SGOT/AST 29 U/L (15-37); SGPT/ALT 40 U/L (13-61); TOT PROT 6.8 g/dl (6.4-8.2)
[2023-09-08 11:55] LABS: ALK PHOS 114 U/L (45-117)
[2023-09-08] MEDS: diazePAM 5 MG TABLET PO PRN (12:25)
[2023-09-08] MEDS: METHOCARBAMOL 500 MG TABLET PO PRN (17:24)
[2023-09-08] MEDS: THIAMINE HCL 100 MG TABLET (FP) PO SCH (22:13)
[2023-09-08] MEDS: MELATONIN 5 MG TABLETS PO SCH (22:13)
[2023-09-09] MEDS: diazePAM 5 MG TABLET PO SCH ×2 (05:36→14:38)
[2023-09-09] MEDS ORDERED: methaDONE 40 MG, methaDONE 10 MG PO SCH (06:00)
[2023-09-09] MEDS: PRENATAL VITAMINS W/ FOLIC ACID TABLET (FP) PO SCH (10:13)
[2023-09-09] MEDS: diazePAM 5 MG TABLET PO PRN (10:13)
[2023-09-09 12:50] VITALS: BP 116/76; PULSE 71; RESP 16; TEMP 98
[2023-09-10] MEDS ORDERED: diazePAM 5 MG TABLET PO SCH (06:00)
[2023-09-11] MEDS ORDERED: diazePAM 5 MG TABLET PO ONE (06:00)
== END 2023-09-09 14:41 | disposition home or self-care (01) | DRG 773 ==
LOC: YASAS 16:16 → Y3N 18:43
PROVIDERS: ADMIT Allergy & Immunology; ATTEND Surgery
PROC: HZ2ZZZZ Detoxification Services for Substance Abuse Treatment (ICD-10-PCS; principal; 2023-09-07)
DX: F13.230 Sedative, hypnotic or anxiolytic dependence with withdrawal, uncomplicated (principal); F11.20 Opioid dependence, uncomplicated; F12.10 Cannabis abuse, uncomplicated; F17.210 Nicotine dependence, cigarettes, uncomplicated; F31.9 Bipolar disorder, unspecified; F41.9 Anxiety disorder, unspecified; J45.909 Unspecified asthma, uncomplicated; E66.9 Obesity, unspecified; Z68.38 Body mass index [BMI] 38.0-38.9, adult; Z59.00 Homelessness unspecified; Z56.0 Unemployment, unspecified
CPT/HCPCS: 36415; 80053; 80307; 85027; 87635

== ENCOUNTER 2023-11-03 11:23 | Inpatient (IN) | payer OTHER ==
[2023-11-03 11:50] VITALS: BP 111/70; PULSE 68; RESP 17; TEMP 97.7; BMI 38.2
[2023-11-03] MEDS ORDERED: BENZONATATE 200 MG CAPSULE PO PRN (15:20)
[2023-11-03] MEDS ORDERED: METHOCARBAMOL 500 MG TABLET PO PRN (15:20)
[2023-11-03] MEDS ORDERED: LOPERAMIDE HCL 2 MG CAPSULE PO PRN (15:20)
[2023-11-03] MEDS ORDERED: NALOXONE HCL 0.4 MG/ML VIAL IM PRN (15:20)
[2023-11-03] MEDS ORDERED: BISMUTH SUBSALICYLATE 262 MG/15 ML BTL PO PRN (15:20)
[2023-11-03] MEDS ORDERED: IBUPROFEN 400 MG TABLET (FP) PO PRN (15:20)
[2023-11-03] MEDS ORDERED: NICOTINE POLACRILEX 2 MG GUM BUC PRN (15:20)
[2023-11-03] MEDS ORDERED: MAG HYDROX/AL HYDROX/SIMETH 30 ML UNIT-DOSE CUP PO PRN (15:20)
[2023-11-03] MEDS ORDERED: NALOXONE HCL (KLOXXADO) 8 MG SPRAY NS PRN (15:20)
[2023-11-03] MEDS ORDERED: MAGNESIUM HYDROX 2400MG/30ML ORAL SUSPENSION 30 ML CUP PO PRN (15:20)
[2023-11-03] MEDS ORDERED: IBUPROFEN 600 MG TABLET (FP) PO PRN (15:20)
[2023-11-03] MEDS ORDERED: ONDANSETRON *ODT* 4 MG TABLET SL PRN (15:20)
[2023-11-03] MEDS ORDERED: BENZOCAINE/MENTHOL (CHLORASEPTIC ) LOZENGE MM PRN (15:20)
[2023-11-03] MEDS ORDERED: POLYETHYLENE GLYCOL (HEALTHYLAX) 3350 17 GM PACKET PO PRN (15:20)
[2023-11-03] MEDS ORDERED: guaiFENesin 600 MG TABLET.ER (FP) PO PRN (15:20)
[2023-11-03] MEDS ORDERED: ACETAMINOPHEN 325 MG TABLET (FP) PO PRN (15:20)
[2023-11-03] MEDS ORDERED: hydrOXYzine PAMOATE 25 MG CAPSULE (FP) PO PRN (15:20)
[2023-11-03] MEDS ORDERED: diazePAM 5 MG TABLET PO PRN (15:25)
[2023-11-03] MEDS ORDERED: IBUPROFEN 600 MG TABLET (FP) PO ONE (15:52)
[2023-11-03] MEDS ORDERED: diazePAM 5 MG TABLET ONE (15:59)
[2023-11-03] MEDS ORDERED: diazePAM 5 MG TABLET PO SCH (17:00)
[2023-11-03] MEDS ORDERED: MELATONIN 5 MG TABLETS PO SCH (22:00)
[2023-11-03] MEDS ORDERED: THIAMINE HCL 100 MG TABLET (FP) PO SCH (22:00)
[2023-11-04] MEDS ORDERED: PRENATAL VITAMINS W/ FOLIC ACID TABLET (FP) PO SCH (10:00)
[2023-11-04] MEDS ORDERED: NICOTINE 21 MG/24 HOURS TOPICAL PATCH TD SCH (10:00)
[2023-11-05] MEDS ORDERED: diazePAM 5 MG TABLET PO SCH (06:00)
[2023-11-06] MEDS ORDERED: diazePAM 5 MG TABLET PO SCH (06:00)
[2023-11-07] MEDS ORDERED: diazePAM 5 MG TABLET PO ONE (06:00)
== END 2023-11-04 00:06 | disposition short-term general hospital (02) | DRG 773 ==
LOC: YASAS 11:23 → Y3N 15:53
PROVIDERS: ADMIT Allergy & Immunology; ATTEND Surgery
PROC: HZ2ZZZZ Detoxification Services for Substance Abuse Treatment (ICD-10-PCS; principal; 2023-11-03)
DX: F11.23 Opioid dependence with withdrawal (principal); F13.230 Sedative, hypnotic or anxiolytic dependence with withdrawal, uncomplicated; F17.210 Nicotine dependence, cigarettes, uncomplicated; F31.9 Bipolar disorder, unspecified; F98.8 Other specified behavioral and emotional disorders with onset usually occurring in childhood and adolescence; L03.113 Cellulitis of right upper limb; J45.20 Mild intermittent asthma, uncomplicated; K21.9 Gastro-esophageal reflux disease without esophagitis; M54.50 Low back pain, unspecified; G89.29 Other chronic pain
CPT/HCPCS: 87635; 87811

== ENCOUNTER 2023-11-03 17:16 | Inpatient (IN) | payer OTHER ==
[2023-11-03 18:34] VITALS: BMI 37.8
[2023-11-03] MEDS ORDERED: ACETAMINOPHEN INJECTION 100 ML IVPB ONE (19:58)
[2023-11-03] MEDS ORDERED: ONDANSETRON 4 MG/2 ML VIAL ONE (19:58)
[2023-11-03 20:13] LABS: BASO % 0.8 % (0-2.0); EOS % 3.3 % (0-4.5); HEMATOCRIT 36.8 % (35.4-49); HEMOGLOBIN 12.1 GM/dL (11.7-16.9); MCH 30.3 pg (25.7-33.7); MCHC 32.8 g/dl (32.0-35.9); MEAN CELL VOLUME 92.6 fl (80-96); MEAN PLT VOLUME 8.2 fl (7.5-11.1); MONO % 10.1 % (3.8-10.2); NEUT % 53.8 % (42.8-82.8); PLATELET COUNT 297 10^3/uL (134-434); RBC 3.97 M/mm3 (4.00-5.60); RDW 16.3 % (11.9-15.9); WHITE BLOOD COUNT 8.8 K/mm3 (4.0-10.0)
[2023-11-03] MEDS: ACETAMINOPHEN 1000 MG/100 ML BAG IVPB ONE (20:19)
[2023-11-03] MEDS: ONDANSETRON 4 MG/2 ML VIAL IVPUSH ONE (20:19)
[2023-11-03 20:20] LABS: INR 1.04 (0.83-1.09); PROTHROMBIN TIME (PATIENT) 12.1 SEC (9.7-13.0)
[2023-11-03 20:23] LABS: ACTIVATED PTT 30.7 SECONDS (25.2-36.5)
[2023-11-03 20:31] LABS: POTASSIUM 3.7 mmol/L (3.5-5.1)
[2023-11-03 20:33] LABS: ALBUMIN 3.1 g/dl (3.4-5.0); BLOOD UREA NITROGEN 9.2 mg/dL (7-18); CALCIUM 8.3 mg/dL (8.5-10.1)
[2023-11-03 20:36] LABS: CREATININE 0.6 mg/dL (0.55-1.3)
[2023-11-03 20:38] LABS: BILIRUBIN,TOTAL 0.2 mg/dL (0.2-1); TOT PROT 6.5 g/dl (6.4-8.2)
[2023-11-03] MEDS ORDERED: PIPERACILLIN/TAZOB 3.375 GM 3.375 GM/50 ML BAG IVPB ONE (21:40)
[2023-11-03] MEDS ORDERED: VANCOMYCIN 1 GRAM (PRE-DOCKED) 1,000 MG/250 ML BAG IVPB ONE (21:40)
[2023-11-03] MEDS: PIPERACILLIN/TAZOB 3.375 GM 3.375 GM in DEXTROSE 5%-WATER - 50 ML IVPB ONE (21:41)
[2023-11-03] MEDS: VANCOMYCIN 1,000 MG in DEXTROSE 5%-WATER - 250 ML IVPB ONE (21:41)
[2023-11-03 22:10] LABS: ERYTHROCYTE SEDIMENTATION RATE 30 mm/hr (0-10)
[2023-11-03] MEDS ORDERED: diazePAM 5 MG TABLET ONE (23:23)
[2023-11-03] MEDS: diazePAM 5 MG TABLET PO ONE (23:24)
[2023-11-04] MEDS ORDERED: diazePAM 5 MG TABLET ONE (01:19)
[2023-11-04] MEDS: diazePAM 5 MG TABLET PO SCH (01:21)
[2023-11-04] MEDS: KETOROLAC TROMETHAMINE 15 MG/ML VIAL IVPUSH PRN (02:00)
[2023-11-04] MEDS: PIPERACILLIN/TAZOB 3.375 GM 3.375 GM in DEXTROSE 5%-WATER - 50 ML IVPB SCH ×2 (02:02→22:19)
[2023-11-04] MEDS: VANCOMYCIN/WATER 1250 MG 1,250 MG/250 ML BAG IVPB SCH ×2 (02:44→22:19)
[2023-11-04] MEDS: diazePAM 5 MG TABLET PO PRN (03:08)
[2023-11-04] MEDS: ONDANSETRON 4 MG/2 ML VIAL IVPUSH PRN (03:08)
[2023-11-04] MEDS ORDERED: methaDONE HCL 10 MG TABLET (FOR DETOX USE ONLY) PO SCH ×2 (07:26→10:00)
[2023-11-04 08:17] LABS: BASO % 0.5 % (0-2.0); HEMATOCRIT 37.9 % (35.4-49); HEMOGLOBIN 12.4 GM/dL (11.7-16.9); LYMPH % 20.3 % (8-40); MCH 30.7 pg (25.7-33.7); MCHC 32.8 g/dl (32.0-35.9); MEAN CELL VOLUME 93.6 fl (80-96); MEAN PLT VOLUME 8.2 fl (7.5-11.1); MONO % 5.8 % (3.8-10.2); NEUT % 72.4 % (42.8-82.8); PLATELET COUNT 310 10^3/uL (134-434); RBC 4.05 M/mm3 (4.00-5.60); RDW 16.4 % (11.9-15.9); WHITE BLOOD COUNT 7.7 K/mm3 (4.0-10.0)
[2023-11-04 08:50] LABS: BLOOD UREA NITROGEN 7.1 mg/dL (7-18); CALCIUM 8.4 mg/dL (8.5-10.1)
[2023-11-04 08:51] LABS: ALBUMIN 3.2 g/dl (3.4-5.0)
[2023-11-04 08:53] LABS: BILIRUBIN,DIRECT 0.3 mg/dL (0.0-0.2)
[2023-11-04 08:54] LABS: CREATININE 0.7 mg/dL (0.55-1.3)
[2023-11-04 08:55] LABS: BILIRUBIN,TOTAL 0.5 mg/dL (0.2-1); TOT PROT 6.8 g/dl (6.4-8.2)
[2023-11-04] MEDS: ENOXAPARIN NA (PORCINE) 40 MG/0.4 ML DISP.SYRIN SQ SCH (10:00)
[2023-11-04] MEDS: NICOTINE 21 MG/24 HOURS TOPICAL PATCH TD SCH (10:01)
[2023-11-04] MEDS: CEFTRIAXONE 1 GM in DEXTROSE 5%-WATER - 50 ML IVPB SCH (11:28)
[2023-11-04] MEDS: diazePAM 5 MG TABLET PO ONE (11:37)
[2023-11-04] MEDS: methaDONE 40 MG, methaDONE 10 MG PO SCH (13:15)
[2023-11-05] MEDS: diazePAM 5 MG TABLET PO SCH (05:50)
[2023-11-05 10:35] LABS: BASO % 0.6 % (0-2.0); EOS % 0.6 % (0-4.5); HEMATOCRIT 38.4 % (35.4-49); HEMOGLOBIN 12.3 GM/dL (11.7-16.9); LYMPH % 29.8 % (8-40); MCH 30.1 pg (25.7-33.7); MCHC 32.1 g/dl (32.0-35.9); MEAN CELL VOLUME 93.6 fl (80-96); MEAN PLT VOLUME 8.7 fl (7.5-11.1); MONO % 6.2 % (3.8-10.2); NEUT % 62.8 % (42.8-82.8); PLATELET COUNT 305 10^3/uL (134-434); RBC 4.11 M/mm3 (4.00-5.60); RDW 16.5 % (11.9-15.9); WHITE BLOOD COUNT 8.2 K/mm3 (4.0-10.0)
[2023-11-05 11:09] LABS: POTASSIUM 4.1 mmol/L (3.5-5.1)
[2023-11-05 11:15] LABS: ALBUMIN 3.4 g/dl (3.4-5.0)
[2023-11-05 11:18] LABS: CREATININE 0.7 mg/dL (0.55-1.3); PHOSPHOROUS 2.9 mg/dL (2.5-4.9)
[2023-11-05] MEDS ORDERED: KETOROLAC TROMETHAMINE 30 MG/1 ML VIAL IVPUSH PRN (11:25)
[2023-11-05 11:35] LABS: BLOOD UREA NITROGEN 4.2 mg/dL (7-18)
[2023-11-05] MEDS: oxyCODONE HCL 5 MG TABLET PO PRN (11:49)
[2023-11-05 12:05] LABS: CALCIUM 8.6 mg/dL (8.5-10.1)
[2023-11-05 12:06] LABS: BILIRUBIN,TOTAL 0.7 mg/dL (0.2-1); MAGNESIUM 2.2 mg/dL (1.8-2.4)
[2023-11-05] MEDS: ONDANSETRON 4 MG/2 ML VIAL IVPB PRN (15:33)
[2023-11-05] MEDS ORDERED: METHOCARBAMOL 500 MG TABLET PO PRN (16:11)
[2023-11-05] MEDS ORDERED: NICOTINE POLACRILEX 4 MG GUM BUC PRN (16:11)
[2023-11-05] MEDS ORDERED: IBUPROFEN 600 MG TABLET (FP) PO PRN (16:11)
[2023-11-05] MEDS ORDERED: BENZONATATE 200 MG CAPSULE PO PRN (16:11)
[2023-11-05] MEDS ORDERED: MAGNESIUM HYDROX 2400MG/30ML ORAL SUSPENSION 30 ML CUP PO PRN (16:11)
[2023-11-05] MEDS ORDERED: BENZOCAINE/MENTHOL (CHLORASEPTIC ) LOZENGE MM PRN (16:11)
[2023-11-05] MEDS ORDERED: IBUPROFEN 400 MG TABLET (FP) PO PRN (16:11)
[2023-11-05] MEDS ORDERED: ONDANSETRON *ODT* 4 MG TABLET SL PRN (16:11)
[2023-11-05] MEDS ORDERED: NALOXONE HCL (KLOXXADO) 8 MG SPRAY NS PRN (16:11)
[2023-11-05] MEDS ORDERED: MAG HYDROX/AL HYDROX/SIMETH 30 ML UNIT-DOSE CUP PO PRN (16:11)
[2023-11-05] MEDS ORDERED: BISMUTH SUBSALICYLATE 524 MG/30 ML PO PRN (16:11)
[2023-11-05] MEDS ORDERED: NALOXONE HCL 0.4 MG/ML VIAL IM PRN (16:11)
[2023-11-05] MEDS ORDERED: POLYETHYLENE GLYCOL (HEALTHYLAX) 3350 17 GM PACKET PO PRN (16:11)
[2023-11-05] MEDS ORDERED: ACETAMINOPHEN 325 MG TABLET (FP) PO PRN (16:11)
[2023-11-05] MEDS ORDERED: LOPERAMIDE HCL 2 MG CAPSULE PO PRN (16:11)
[2023-11-05] MEDS ORDERED: DICYCLOMINE HCL 10 MG CAPSULE PO PRN (16:11)
[2023-11-05] MEDS ORDERED: guaiFENesin 600 MG TABLET.ER (FP) PO PRN (16:11)
[2023-11-05] MEDS ORDERED: NICOTINE 14 MG/24 HOURS TOPICAL PATCH TD SCH (16:15)
[2023-11-05] MEDS: AMOX TR/POT CLAV 875MG/125MG TABLETS (FP) PO SCH (18:26)
[2023-11-05] MEDS: GABAPENTIN 100 MG CAPSULE PO SCH (21:16)
[2023-11-05] MEDS: THIAMINE HCL 100 MG TABLET (FP) PO SCH (21:17)
[2023-11-05] MEDS: MELATONIN 5 MG TABLETS PO PRN (21:55)
[2023-11-06] MEDS: diazePAM 5 MG TABLET PO SCH (06:52)
[2023-11-06] MEDS: PRENATAL VITAMINS W/ FOLIC ACID TABLET (FP) PO SCH (10:38)
[2023-11-06 10:55] LABS: BASO % 0.4 % (0-2.0); HEMATOCRIT 38.6 % (35.4-49); HEMOGLOBIN 12.7 GM/dL (11.7-16.9); LYMPH % 27.6 % (8-40); MCH 30.6 pg (25.7-33.7); MEAN CELL VOLUME 92.9 fl (80-96); MEAN PLT VOLUME 8.8 fl (7.5-11.1); MONO % 8.9 % (3.8-10.2); NEUT % 62.1 % (42.8-82.8); PLATELET COUNT 315 10^3/uL (134-434); RBC 4.15 M/mm3 (4.00-5.60); RDW 16.4 % (11.9-15.9); WHITE BLOOD COUNT 7.1 K/mm3 (4.0-10.0)
[2023-11-06 10:58] LABS: POTASSIUM 4.2 mmol/L (3.5-5.1)
[2023-11-06 11:14] LABS: ALBUMIN 3.4 g/dl (3.4-5.0); BLOOD UREA NITROGEN 5.2 mg/dL (7-18); CALCIUM 9.1 mg/dL (8.5-10.1); MAGNESIUM 2.2 mg/dL (1.8-2.4)
[2023-11-06 11:17] LABS: CREATININE 0.8 mg/dL (0.55-1.3); PHOSPHOROUS 3.3 mg/dL (2.5-4.9)
[2023-11-06 11:21] LABS: BILIRUBIN,TOTAL 0.3 mg/dL (0.2-1)
[2023-11-06] MEDS: diazePAM 5 MG TABLET PO PRN (16:25)
[2023-11-07] MEDS: hydrOXYzine PAMOATE 25 MG CAPSULE (FP) PO PRN (04:18)
[2023-11-07] MEDS ORDERED: BENZONATATE 100 MG CAPSULE PO PRN (05:50)
[2023-11-07] MEDS: diazePAM 5 MG TABLET PO PRN (15:05)
[2023-11-08] MEDS ORDERED: BUPIVACAINE LIPOSOME/PF (EXPAREL) 266 MG/20 ML VIAL ONE (16:37)
[2023-11-08] MEDS ORDERED: BUPIVACAINE HCL/PF 0.5% (5MG/ML) 10 ML VIAL ONE (16:37)
[2023-11-08] MEDS ORDERED: MIDAZOLAM HCL 2 MG/2 ML SINGLE DOSE VIAL ONE (16:39)
[2023-11-08] MEDS ORDERED: PROPOFOL 40 ML ONE (17:01)
[2023-11-08] MEDS ORDERED: PROPOFOL 20 ML ONE (17:05)
[2023-11-08] MEDS: ceFAZolin SODIUM 1 GM VIAL IVPB ONE (17:10)
[2023-11-08] MEDS ORDERED: ACETAMINOPHEN 1000 MG/100 ML BAG IVPB ONE (18:16)
[2023-11-08] MEDS ORDERED: ACETAMINOPHEN INJECTION 100 ML IVPB ONE (18:34)
[2023-11-08] MEDS: ACETAMINOPHEN 1000 MG/100 ML BAG IVPB ONE (18:38)
[2023-11-08] MEDS ORDERED: METHOCARBAMOL 500 MG TABLET PO PRN (18:41)
[2023-11-08] MEDS ORDERED: MAGNESIUM HYDROX 2400MG/30ML ORAL SUSPENSION 30 ML CUP PO PRN (18:41)
[2023-11-08] MEDS ORDERED: BENZOCAINE/MENTHOL (CHLORASEPTIC ) LOZENGE MM PRN (18:41)
[2023-11-08] MEDS ORDERED: ONDANSETRON 4 MG/2 ML VIAL IVPB PRN (18:41)
[2023-11-08] MEDS ORDERED: DICYCLOMINE HCL 10 MG CAPSULE PO PRN (18:41)
[2023-11-08] MEDS ORDERED: BISMUTH SUBSALICYLATE 524 MG/30 ML PO PRN (18:41)
[2023-11-08] MEDS ORDERED: hydrOXYzine PAMOATE 25 MG CAPSULE (FP) PO PRN (18:41)
[2023-11-08] MEDS ORDERED: NICOTINE POLACRILEX 4 MG GUM BUC PRN (18:41)
[2023-11-08] MEDS ORDERED: POLYETHYLENE GLYCOL (HEALTHYLAX) 3350 17 GM PACKET PO PRN (18:41)
[2023-11-08] MEDS ORDERED: NALOXONE HCL (KLOXXADO) 8 MG SPRAY NS PRN (18:41)
[2023-11-08] MEDS ORDERED: MAG HYDROX/AL HYDROX/SIMETH 30 ML UNIT-DOSE CUP PO PRN (18:41)
[2023-11-08] MEDS ORDERED: NALOXONE HCL 0.4 MG/ML VIAL IM PRN (18:41)
[2023-11-08] MEDS ORDERED: LOPERAMIDE HCL 2 MG CAPSULE PO PRN (18:41)
[2023-11-08] MEDS: LACTATED RINGERS SOLUTION 1,000 ML IV SCH (20:24)
[2023-11-08] MEDS: THIAMINE HCL 100 MG TABLET (FP) PO SCH (21:58)
[2023-11-08] MEDS: GABAPENTIN 100 MG CAPSULE PO SCH (21:58)
[2023-11-08] MEDS: diazePAM 5 MG TABLET PO PRN (22:23)
[2023-11-08] MEDS: MELATONIN 5 MG TABLETS PO PRN (22:23)
[2023-11-08 23:46] VITALS: RESP 18
[2023-11-08] MEDS ORDERED: ceFAZolin 2 GRAM PREMIX BAG IVPB SCH (23:55)
[2023-11-09] MEDS: CEFAZOLIN SODIUM 2 GM in DEXTROSE 5%-WATER 100 ML IVPB SCH (00:25)
[2023-11-09] MEDS: KETOROLAC TROMETHAMINE 30 MG/1 ML VIAL IVPUSH ONE ×2 (00:30→00:48)
[2023-11-09] MEDS: methaDONE 40 MG, methaDONE 10 MG PO SCH (06:18)
[2023-11-09] MEDS: AMOX TR/POT CLAV 875MG/125MG TABLETS (FP) PO SCH (08:25)
[2023-11-09] MEDS: PRENATAL VITAMINS W/ FOLIC ACID TABLET (FP) PO SCH (10:11)
[2023-11-09] MEDS: NICOTINE 21 MG/24 HOURS TOPICAL PATCH TD SCH (10:11)
[2023-11-09 10:29] LABS: BASO % 0.3 % (0-2.0); EOS % 0.2 % (0-4.5); HEMATOCRIT 43.6 % (35.4-49); HEMOGLOBIN 14.3 GM/dL (11.7-16.9); LYMPH % 20.3 % (8-40); MCH 30.3 pg (25.7-33.7); MCHC 32.8 g/dl (32.0-35.9); MEAN CELL VOLUME 92.3 fl (80-96); MEAN PLT VOLUME 8.6 fl (7.5-11.1); MONO % 7.7 % (3.8-10.2); NEUT % 71.5 % (42.8-82.8); PLATELET COUNT 396 10^3/uL (134-434); RBC 4.73 M/mm3 (4.00-5.60); RDW 16.5 % (11.9-15.9); WHITE BLOOD COUNT 17.7 K/mm3 (4.0-10.0)
[2023-11-09 10:47] LABS: POTASSIUM 4.1 mmol/L (3.5-5.1)
[2023-11-09 11:01] LABS: ALBUMIN 3.5 g/dl (3.4-5.0); BLOOD UREA NITROGEN 12.8 mg/dL (7-18); CALCIUM 9.2 mg/dL (8.5-10.1)
[2023-11-09 11:02] LABS: MAGNESIUM 1.9 mg/dL (1.8-2.4)
[2023-11-09 11:04] LABS: CREATININE 0.9 mg/dL (0.55-1.3); PHOSPHOROUS 3.3 mg/dL (2.5-4.9)
[2023-11-09 11:05] LABS: BILIRUBIN,TOTAL 0.4 mg/dL (0.2-1); TOT PROT 7.6 g/dl (6.4-8.2)
[2023-11-09] MEDS ORDERED: KETOROLAC TROMETHAMINE 10 MG TABLET PO SCH (14:30)
[2023-11-09] MEDS: oxyCODONE HCL 5 MG TABLET PO PRN (15:43)
[2023-11-09] MEDS: KETOROLAC TROMETHAMINE 10 MG TABLET PO ONE (17:31)
[2023-11-09] MEDS: KETOROLAC TROMETHAMINE 10 MG TABLET PO SCH (21:54)
[2023-11-10] MEDS: ENOXAPARIN NA (PORCINE) 40 MG/0.4 ML DISP.SYRIN SQ SCH (09:12)
[2023-11-10 09:26] LABS: BASO % 0.3 % (0-2.0); EOS % 0.5 % (0-4.5); HEMATOCRIT 39.9 % (35.4-49); HEMOGLOBIN 13.1 GM/dL (11.7-16.9); MCH 30.9 pg (25.7-33.7); MCHC 32.9 g/dl (32.0-35.9); MEAN CELL VOLUME 93.9 fl (80-96); MEAN PLT VOLUME 8.8 fl (7.5-11.1); MONO % 5.7 % (3.8-10.2); NEUT % 72.5 % (42.8-82.8); PLATELET COUNT 303 10^3/uL (134-434); RBC 4.25 M/mm3 (4.00-5.60); RDW 16.1 % (11.9-15.9); WHITE BLOOD COUNT 11.6 K/mm3 (4.0-10.0)
[2023-11-10 09:55] LABS: ALBUMIN 3.3 g/dl (3.4-5.0); BLOOD UREA NITROGEN 12.7 mg/dL (7-18)
[2023-11-10 09:56] LABS: MAGNESIUM 1.9 mg/dL (1.8-2.4)
[2023-11-10 09:58] LABS: CREATININE 0.8 mg/dL (0.55-1.3); PHOSPHOROUS 2.3 mg/dL (2.5-4.9)
[2023-11-10 09:59] LABS: BILIRUBIN,TOTAL 0.7 mg/dL (0.2-1); TOT PROT 6.8 g/dl (6.4-8.2)
[2023-11-10 13:43] VITALS: BP 127/89; PULSE 88; TEMP 98.7
[2023-11-10] MEDS: NAPROXEN 500 MG TABLET PO SCH (16:01)
== END 2023-11-10 17:00 | disposition home or self-care (01) | DRG 313 ==
LOC: JER 17:16 → JERBED 22:43 → J6S 11-04 01:29
PROVIDERS: ADMIT Internal Medicine; ATTEND Internal Medicine
PROC: 0QSJ04Z Reposition Right Fibula with Internal Fixation Device, Open Approach (ICD-10-PCS; principal; 2023-11-08 13:30)
DX: S82.431A Displaced oblique fracture of shaft of right fibula, initial encounter for closed fracture (principal); F90.9 Attention-deficit hyperactivity disorder, unspecified type; F43.10 Post-traumatic stress disorder, unspecified; F31.9 Bipolar disorder, unspecified; F11.20 Opioid dependence, uncomplicated; G43.909 Migraine, unspecified, not intractable, without status migrainosus; K21.9 Gastro-esophageal reflux disease without esophagitis; J45.909 Unspecified asthma, uncomplicated; F98.8 Other specified behavioral and emotional disorders with onset usually occurring in childhood and adolescence; M54.50 Low back pain, unspecified; L03.115 Cellulitis of right lower limb; R94.5 Abnormal results of liver function studies; F13.139 Sedative, hypnotic or anxiolytic abuse with withdrawal, unspecified; F41.8 Other specified anxiety disorders; Y08.89XA Assault by other specified means, initial encounter; Y92.89 Other specified places as the place of occurrence of the external cause; Y99.9 Unspecified external cause status
CPT/HCPCS: 36415; 71045-TC-FY; 73590-TC-RT-FY; 73610-TC-RT-FY; 73630-TC-RT-FY; 76000-TC-FY; 80048; 80053; 80076; 83735; 84100; 85025; 85610; 85651; 85730; 86140; 86705; 86708; 87040; 87081; 87517; 87522; 93005; 93010; 93971-TC; 94760; 97116-GP; 97162-GP; 99285-25; C1713; J0131

== ENCOUNTER 2024-02-29 12:57 | Inpatient (IN) | payer OTHER ==
[2024-02-29 14:17] VITALS: BMI 33.7
[2024-02-29] MEDS ORDERED: NICOTINE 21 MG/24 HOURS TOPICAL PATCH TD PRN (15:56)
[2024-02-29] MEDS ORDERED: IBUPROFEN 400 MG TABLET (FP) PO PRN (15:56)
[2024-02-29] MEDS ORDERED: IBUPROFEN 600 MG TABLET (FP) PO PRN (15:56)
[2024-02-29] MEDS ORDERED: BENZONATATE 200 MG CAPSULE PO PRN (15:56)
[2024-02-29] MEDS ORDERED: BISMUTH SUBSALICYLATE 524 MG/30 ML PO PRN (15:56)
[2024-02-29] MEDS ORDERED: guaiFENesin 600 MG TABLET.ER (FP) PO PRN (15:56)
[2024-02-29] MEDS ORDERED: MAG HYDROX/AL HYDROX/SIMETH 30 ML UNIT-DOSE CUP PO PRN (15:56)
[2024-02-29] MEDS ORDERED: BENZOCAINE/MENTHOL (CHLORASEPTIC ) LOZENGE MM PRN (15:56)
[2024-02-29] MEDS ORDERED: POLYETHYLENE GLYCOL (HEALTHYLAX) 3350 17 GM PACKET PO PRN (15:56)
[2024-02-29] MEDS ORDERED: NICOTINE POLACRILEX 4 MG GUM BUC PRN (15:56)
[2024-02-29] MEDS ORDERED: MAGNESIUM HYDROX 2400MG/30ML ORAL SUSPENSION 30 ML CUP PO PRN (15:56)
[2024-02-29] MEDS ORDERED: DICYCLOMINE HCL 10 MG CAPSULE PO PRN (15:56)
[2024-02-29] MEDS ORDERED: NALOXONE HCL (KLOXXADO) 8 MG SPRAY NS PRN (15:56)
[2024-02-29] MEDS ORDERED: NALOXONE HCL 0.4 MG/ML VIAL IM PRN (15:56)
[2024-02-29] MEDS ORDERED: LOPERAMIDE HCL 2 MG CAPSULE PO PRN (15:56)
[2024-02-29] MEDS ORDERED: ALBUTEROL SO4 HFA INHALER IH PRN (15:59)
[2024-02-29] MEDS ORDERED: diazePAM 5 MG TABLET ONE (17:27)
[2024-02-29] MEDS: diazePAM 5 MG TABLET PO SCH (17:37)
[2024-02-29] MEDS: METHOCARBAMOL 500 MG TABLET PO PRN (18:13)
[2024-02-29] MEDS: MELATONIN 5 MG TABLETS PO SCH (22:19)
[2024-02-29] MEDS: THIAMINE HCL 100 MG TABLET (FP) PO SCH (22:19)
[2024-03-01] MEDS: hydrOXYzine PAMOATE 25 MG CAPSULE (FP) PO PRN (03:47)
[2024-03-01] MEDS: methaDONE HCL 40 MG DISPERSABLE TABLET PO SCH (07:59)
[2024-03-01] MEDS: PRENATAL VITAMINS W/ FOLIC ACID TABLET (FP) PO SCH (10:06)
[2024-03-01] MEDS: FAMOTIDINE 20 MG TABLET PO SCH (10:06)
[2024-03-01] MEDS: ONDANSETRON *ODT* 4 MG TABLET SL PRN (10:08)
[2024-03-01 11:53] LABS: CHLORIDE 104 mmol/L (98-107); POTASSIUM 4.2 mmol/L (3.5-5.1); SODIUM 138 mmol/L (136-145)
[2024-03-01 11:55] LABS: HEMATOCRIT 40.1 % (35.4-49); HEMOGLOBIN 13.6 GM/dL (11.7-16.9); MCH 31.2 pg (25.7-33.7); MCHC 33.9 g/dl (32.0-35.9); MEAN CELL VOLUME 92.1 fl (80-96); MEAN PLT VOLUME 8.9 fl (7.5-11.1); PLATELET COUNT 262 10^3/uL (134-434); RBC 4.35 M/mm3 (4.00-5.60); WHITE BLOOD COUNT 8.4 K/mm3 (4.0-10.0)
[2024-03-01 11:57] LABS: GLUCOSE,RANDOM 69 mg/dL (74-106)
[2024-03-01 11:58] LABS: ALBUMIN 3.6 g/dl (3.4-5.0); ANION GAP 3 mmol/L (4-13); BLOOD UREA NITROGEN 8.1 mg/dL (7-18); CALCIUM 9.4 mg/dL (8.5-10.1); CO2 32 mmol/L (21-32)
[2024-03-01 12:00] LABS: SGPT/ALT 25 U/L (13-61)
[2024-03-01 12:01] LABS: CREATININE 0.7 mg/dL (0.55-1.3); SGOT/AST 21 U/L (15-37)
[2024-03-01 12:02] LABS: BILIRUBIN,TOTAL 0.6 mg/dL (0.2-1); TOT PROT 7.1 g/dl (6.4-8.2)
[2024-03-01 12:03] LABS: ALK PHOS 112 U/L (45-117)
[2024-03-01] MEDS: diazePAM 5 MG TABLET PO PRN (13:30)
[2024-03-01] MEDS: SUVOREXANT 10 MG TABLET PO PRN (23:33)
[2024-03-02] MEDS: diazePAM 5 MG TABLET PO SCH (05:14)
[2024-03-02] MEDS: ACETAMINOPHEN 325 MG TABLET (FP) PO PRN (10:04)
[2024-03-03] MEDS: diazePAM 5 MG TABLET PO SCH (05:18)
[2024-03-03 09:01] VITALS: BP 127/75; PULSE 76; RESP 20; TEMP 98
[2024-03-04] MEDS ORDERED: diazePAM 5 MG TABLET PO ONE (06:00)
== END 2024-03-03 09:55 | disposition home or self-care (01) | DRG 773 ==
LOC: YASAS 12:57 → Y6N 17:15
PROVIDERS: ADMIT Allergy & Immunology; ATTEND Surgery
PROC: HZ2ZZZZ Detoxification Services for Substance Abuse Treatment (ICD-10-PCS; principal; 2024-02-29)
DX: F10.230 Alcohol dependence with withdrawal, uncomplicated (principal); F13.230 Sedative, hypnotic or anxiolytic dependence with withdrawal, uncomplicated; F11.20 Opioid dependence, uncomplicated; F12.10 Cannabis abuse, uncomplicated; F17.210 Nicotine dependence, cigarettes, uncomplicated; F19.280 Other psychoactive substance dependence with psychoactive substance-induced anxiety disorder; F19.282 Other psychoactive substance dependence with psychoactive substance-induced sleep disorder; F31.9 Bipolar disorder, unspecified; J45.20 Mild intermittent asthma, uncomplicated; K21.9 Gastro-esophageal reflux disease without esophagitis; M54.50 Low back pain, unspecified; G89.29 Other chronic pain; Z86.69 Personal history of other diseases of the nervous system and sense organs; Z59.00 Homelessness unspecified
CPT/HCPCS: 36415; 80053; 80307; 85027; 86780; 93005; 93010; Q0162

== ENCOUNTER 2025-01-22 11:55 | Inpatient (IN) | payer OTHER ==
[2025-01-22 12:43] VITALS: BMI 29.0
[2025-01-22] MEDS ORDERED: BISMUTH SUBSALICYLATE 524 MG/30 ML PO PRN (13:04)
[2025-01-22] MEDS ORDERED: IBUPROFEN 400 MG TABLET (FP) PO PRN (13:04)
[2025-01-22] MEDS ORDERED: BENZOCAINE/MENTHOL (CHLORASEPTIC ) LOZENGE MM PRN (13:04)
[2025-01-22] MEDS ORDERED: POLYETHYLENE GLYCOL (HEALTHYLAX) 3350 17 GM PACKET PO PRN (13:04)
[2025-01-22] MEDS ORDERED: BENZONATATE 200 MG CAPSULE PO PRN (13:04)
[2025-01-22] MEDS ORDERED: NALOXONE (NARCAN) HCL 4 MG/0.1 ML SPRAY NS PRN (13:04)
[2025-01-22] MEDS ORDERED: DICYCLOMINE HCL 10 MG CAPSULE PO PRN (13:04)
[2025-01-22] MEDS ORDERED: MAG HYDROX/AL HYDROX/SIMETH 30 ML UNIT-DOSE CUP PO PRN (13:04)
[2025-01-22] MEDS ORDERED: NICOTINE POLACRILEX 2 MG GUM BUC PRN (13:04)
[2025-01-22] MEDS ORDERED: ONDANSETRON *ODT* 4 MG TABLET SL PRN (13:04)
[2025-01-22] MEDS ORDERED: guaiFENesin 600 MG TABLET.ER (FP) PO PRN (13:04)
[2025-01-22] MEDS ORDERED: IBUPROFEN 600 MG TABLET (FP) PO PRN (13:04)
[2025-01-22] MEDS ORDERED: ACETAMINOPHEN 325 MG TABLET (FP) PO PRN (13:04)
[2025-01-22] MEDS ORDERED: MAGNESIUM HYDROX 2400MG/30ML ORAL SUSPENSION 30 ML CUP PO PRN (13:04)
[2025-01-22] MEDS ORDERED: LOPERAMIDE HCL 2 MG CAPSULE PO PRN (13:04)
[2025-01-22] MEDS ORDERED: cloNIDine HCL 0.1 MG TABLET PO SCH (14:00)
[2025-01-22] MEDS ORDERED: cloNIDine HCL 0.1 MG TABLET ONE (15:04)
[2025-01-22] MEDS: cloNIDine HCL 0.1 MG TABLET PO SCH (15:06)
[2025-01-22] MEDS ORDERED: diazePAM 5 MG TABLET ONE (15:08)
[2025-01-22] MEDS: diazePAM 5 MG TABLET PO PRN (15:09)
[2025-01-22] MEDS: diazePAM 5 MG TABLET PO SCH (17:06)
[2025-01-22] MEDS: THIAMINE 100 MG TABLET PO SCH (22:12)
[2025-01-22] MEDS: MELATONIN 5 MG TABLETS PO SCH (22:12)
[2025-01-23] MEDS: hydrOXYzine PAMOATE 25 MG CAPSULE (FP) PO PRN (08:31)
[2025-01-23] MEDS: METHOCARBAMOL 500 MG TABLET PO PRN (08:31)
[2025-01-23 09:25] LABS: HEMATOCRIT 38.9 % (35.4-49); HEMOGLOBIN 12.8 GM/dL (11.7-16.9); MCH 31.3 pg (25.7-33.7); MEAN CELL VOLUME 94.8 fl (80-96); MEAN PLT VOLUME 9.1 fl (7.5-11.1); PLATELET COUNT 282 10^3/uL (134-434); RDW 16.2 % (11.9-15.9); WHITE BLOOD COUNT 11.6 K/mm3 (4.0-10.0)
[2025-01-23] MEDS: NICOTINE 14 MG/24 HOURS TOPICAL PATCH TD SCH (10:41)
[2025-01-23] MEDS: methaDONE HCL 10 MG TABLET PO ONE (10:45)
[2025-01-23] MEDS: PRENATAL VITAMINS W/ FOLIC ACID TABLET (FP) PO SCH (10:45)
[2025-01-23] MEDS ORDERED: methaDONE HCL 10 MG TABLET PO ONE (10:45)
[2025-01-23 13:50] LABS: POTASSIUM 4.6 mmol/L (3.5-5.1)
[2025-01-23 13:52] LABS: CALCIUM 9.7 mg/dL (8.5-10.1)
[2025-01-23 13:53] LABS: ALBUMIN 4.4 g/dl (3.4-5.0); BLOOD UREA NITROGEN 19.1 mg/dL (7-18)
[2025-01-23 13:58] LABS: BILIRUBIN,TOTAL 0.4 mg/dL (0.2-1); TOT PROT 7.9 g/dl (6.4-8.2)
[2025-01-23] MEDS: SUVOREXANT 10 MG TABLET PO PRN (22:27)
[2025-01-24] MEDS ORDERED: cloNIDine HCL 0.1 MG TABLET PO PRN
[2025-01-24] MEDS: diazePAM 5 MG TABLET PO SCH (05:45)
[2025-01-24] MEDS ORDERED: methaDONE HCL 10 MG TABLET PO SCH (06:00)
[2025-01-25] MEDS: diazePAM 5 MG TABLET PO SCH (05:47)
[2025-01-25] MEDS ORDERED: ALBUTEROL SO4 HFA INHALER IH PRN (08:19)
[2025-01-25] MEDS: methaDONE HCL 10 MG TABLET PO ONE (09:58)
[2025-01-26] MEDS: diazePAM 5 MG TABLET PO ONE ×2 (06:02→18:11)
[2025-01-26 11:18] LABS: BASO % 0.4 % (0-2.0); EOS % 2.9 % (0-4.5); HEMATOCRIT 41.7 % (35.4-49); HEMOGLOBIN 13.9 GM/dL (11.7-16.9); MCH 31.3 pg (25.7-33.7); MCHC 33.4 g/dl (32.0-35.9); MEAN CELL VOLUME 93.7 fl (80-96); MEAN PLT VOLUME 8.3 fl (7.5-11.1); MONO % 8.2 % (3.8-10.2); NEUT % 56.5 % (42.8-82.8); PLATELET COUNT 256 10^3/uL (134-434); RBC 4.45 M/mm3 (4.00-5.60); RDW 16.2 % (11.9-15.9); WHITE BLOOD COUNT 7.5 K/mm3 (4.0-10.0)
[2025-01-26] MEDS ORDERED: diazePAM 5 MG TABLET PO ONE (16:00)
[2025-01-26] MEDS: SUVOREXANT 10 MG TABLET PO PRN (23:08)
[2025-01-27 09:32] VITALS: BP 132/86; PULSE 103; RESP 16; TEMP 97.6
[2025-01-27] MEDS ORDERED: methaDONE HCL 10 MG TABLET PO ONE (10:00)
== END 2025-01-27 09:32 | disposition home or self-care (01) | DRG 773 ==
LOC: YASAS 11:55 → Y6N 14:33
PROVIDERS: ADMIT Allergy & Immunology; ATTEND Allergy & Immunology
PROC: HZ2ZZZZ Detoxification Services for Substance Abuse Treatment (ICD-10-PCS; principal; 2025-01-22)
DX: F10.230 Alcohol dependence with withdrawal, uncomplicated (principal); F13.230 Sedative, hypnotic or anxiolytic dependence with withdrawal, uncomplicated; F11.20 Opioid dependence, uncomplicated; F17.210 Nicotine dependence, cigarettes, uncomplicated; F19.282 Other psychoactive substance dependence with psychoactive substance-induced sleep disorder; F19.24 Other psychoactive substance dependence with psychoactive substance-induced mood disorder; F31.9 Bipolar disorder, unspecified; F43.10 Post-traumatic stress disorder, unspecified; J45.909 Unspecified asthma, uncomplicated; M54.50 Low back pain, unspecified; G89.29 Other chronic pain
CPT/HCPCS: 36415; 80053; 80305; 80307; 85025; 85027; 86780; 93005; 93010

== ENCOUNTER 2025-05-18 09:31 | Inpatient (IN) | payer OTHER ==
[2025-05-18 09:52] VITALS: BMI 32.3
[2025-05-18] MEDS ORDERED: ACETAMINOPHEN 325 MG TABLET (FP) PO PRN (11:19)
[2025-05-18] MEDS ORDERED: IBUPROFEN 400 MG TABLET (FP) PO PRN (11:19)
[2025-05-18] MEDS ORDERED: BENZOCAINE/MENTHOL (CHLORASEPTIC ) LOZENGE MM PRN (11:19)
[2025-05-18] MEDS ORDERED: MAGNESIUM HYDROX 2400MG/30ML ORAL SUSPENSION 30 ML CUP PO PRN (11:19)
[2025-05-18] MEDS ORDERED: DICYCLOMINE HCL 10 MG CAPSULE PO PRN (11:19)
[2025-05-18] MEDS ORDERED: NALOXONE (NARCAN) HCL 4 MG/0.1 ML SPRAY NS PRN (11:19)
[2025-05-18] MEDS ORDERED: BENZONATATE 200 MG CAPSULE PO PRN (11:19)
[2025-05-18] MEDS ORDERED: BISMUTH SUBSALICYLATE 262 MG/15 ML BTL PO PRN (11:19)
[2025-05-18] MEDS ORDERED: NICOTINE POLACRILEX 2 MG GUM BUC PRN (11:19)
[2025-05-18] MEDS ORDERED: NICOTINE POLACRILEX 2 MG LOZENGE BC PRN (11:19)
[2025-05-18] MEDS ORDERED: POLYETHYLENE GLYCOL (HEALTHYLAX) 3350 17 GM PACKET PO PRN (11:19)
[2025-05-18] MEDS ORDERED: IBUPROFEN 600 MG TABLET (FP) PO PRN (11:19)
[2025-05-18] MEDS ORDERED: P-EPHED 60MG/TRIPROLIDI 2.5MG TABLET PO PRN (11:19)
[2025-05-18] MEDS ORDERED: LOPERAMIDE HCL 2 MG CAPSULE PO PRN (11:19)
[2025-05-18] MEDS ORDERED: guaiFENesin 600 MG TABLET.ER (FP) PO PRN (11:19)
[2025-05-18] MEDS ORDERED: levETIRAcetam 500 MG TABLET (FP) PO ONE (13:10)
[2025-05-18] MEDS: levETIRAcetam 500 MG TABLET (FP) PO SCH (13:16)
[2025-05-18] MEDS ORDERED: ALBUTEROL SO4 HFA INHALER IH PRN (14:45)
[2025-05-18] MEDS: METHOCARBAMOL 500 MG TABLET PO PRN (17:11)
[2025-05-18] MEDS: THIAMINE 100 MG TABLET PO SCH (23:10)
[2025-05-18] MEDS: MELATONIN 5 MG TABLETS PO SCH (23:10)
[2025-05-19] MEDS: PRENATAL VITAMINS W/ FOLIC ACID TABLET (FP) PO SCH (09:56)
[2025-05-19 15:15] LABS: MCHC 30.9 g/dl (32.3-36.5); MEAN CELL VOLUME 97.1 fl (79.0-92.2); MEAN PLT VOLUME 10.8 fl (9.4-12.4); RDW 14.8 % (12.0-15.6)
[2025-05-19 15:39] LABS: CO2 32.0 mmol/L (21-32); GLUCOSE,RANDOM 93.0 mg/dL (74-106)
[2025-05-19 15:42] LABS: CREATININE 0.8 mg/dL (0.55-1.3); SGOT/AST 16.0 U/L (15-37); SGPT/ALT 23.0 U/L (13-61)
[2025-05-19 15:44] LABS: TOT PROT 6.9 g/dl (6.4-8.2)
[2025-05-19 15:45] LABS: ALK PHOS 92.0 U/L (45-117)
[2025-05-20] MEDS: ONDANSETRON *ODT* 4 MG TABLET SL PRN (09:11)
[2025-05-20] MEDS: MAG HYDROX/AL HYDROX/SIMETH 30 ML UNIT-DOSE CUP PO PRN (09:11)
[2025-05-22 06:41] VITALS: RESP 16
[2025-05-22 08:23] VITALS: BP 117/73; PULSE 82; TEMP 97.6
== END 2025-05-22 08:40 | disposition home or self-care (01) | DRG 773 ==
LOC: YASAS 09:31 → Y6N 13:51
PROVIDERS: ADMIT Neuromusculoskeletal Medicine & OMM; ATTEND Allergy & Immunology
PROC: HZ2ZZZZ Detoxification Services for Substance Abuse Treatment (ICD-10-PCS; principal; 2025-05-18)
DX: F10.230 Alcohol dependence with withdrawal, uncomplicated (principal); F13.20 Sedative, hypnotic or anxiolytic dependence, uncomplicated; F11.20 Opioid dependence, uncomplicated; F12.20 Cannabis dependence, uncomplicated; F17.210 Nicotine dependence, cigarettes, uncomplicated; F19.280 Other psychoactive substance dependence with psychoactive substance-induced anxiety disorder; F31.9 Bipolar disorder, unspecified; F43.10 Post-traumatic stress disorder, unspecified; K21.9 Gastro-esophageal reflux disease without esophagitis; J45.30 Mild persistent asthma, uncomplicated; M54.50 Low back pain, unspecified; G89.29 Other chronic pain
CPT/HCPCS: 36415; 80053; 80305; 80307; 85027; 86780; Q0162